=== PATIENT | male | born 1975 | race Caucasian/White ===

== ENCOUNTER 2016-06-13 21:50 | Emergency (ER) | payer OTHER ==
[~2016-06-13] VITALS: Ht 172.7 cm; Wt 79.5 kg
[2016-06-13 22:40] VITALS: Ht 172.7 cm; Wt 79.5 kg
[2016-06-14 00:29] VITALS: TEMP 98
[2016-06-14] MEDS ORDERED: SOD CHLORIDE 0.9% 1,000 ML IV STA (00:36)
[2016-06-14] MEDS ORDERED: LIDOCAINE/MYLANTA 40 ML BTL PO STA (00:36)
[2016-06-14] MEDS ORDERED: ONDANSETRON 4 MG INJ IV STA (00:36)
[2016-06-14] MEDS ORDERED: BELLADONNA/PHENOBARBITAL TAB PO STA (00:36)
[2016-06-14] MEDS ORDERED: HYDROmorphONE 1 MG/ML SYG IV STA (00:36)
[2016-06-14 02:21] LABS: BASOPHILS % 0.3 % (0.0-2.0); EOSINOPHILS % 0.6 % (0.0-7.0); HEMOGLOBIN 13.5 g/dl (14.0-18.0); LYMPHOCYTES # 2.5 10^3/ul (0.8-2.9); LYMPHOCYTES % 33.1 % (15.0-51.0); MEAN CORPUSCULAR HEMOGLOBIN 30.9 pg (29.0-33.0); MEAN CORPUSCULAR HGB CONC 33.7 g/dl (32.0-37.0); MEAN CORPUSCULAR VOLUME 91.7 fl (82.0-101.0); MEAN PLATELET VOLUME 9.2 fl (7.4-10.4); MONOCYTE # 0.5 10^3/ul (0.3-0.9); NEUTROPHIL # 4.5 10^3/ul (1.6-7.5); PLATELET COUNT 268 10^3/UL (140-440); RED BLOOD COUNT 4.37 10^6/ul (4.70-6.10); RED CELL DISTRIBUTION WIDTH 13.5 % (11.5-14.5); UNCORRECTED WBC 7.6 10^3/ul (4.8-10.8); WHITE BLOOD COUNT 7.6 10^3/ul (4.8-10.8)
[2016-06-14 02:24] LABS: CONDITION 1
[2016-06-14 02:37] LABS: ALBUMIN 4.8 g/dl (3.3-4.9); POTASSIUM 3.7 mmol/L (3.5-5.1)
[2016-06-14 02:40] LABS: ALBUMIN/GLOBULIN RATIO 1.26; BILIRUBIN,INDIRECT 0.1 mg/dl (0-1.1); BILIRUBIN,TOTAL 0.1 mg/dl (0.2-1.3); CREATININE 0.68 mg/dl (0.61-1.24); TOTAL PROTEIN 8.6 g/dl (6.1-8.1)
[2016-06-14 02:51] LABS: TROPONIN-I 0.015 ng/ml (0.00-0.12)
[2016-06-14] MEDS ORDERED: ONDA4TAB8 PO (03:25)
--- NOTE | 2016-06-14 03:29 | ERD ---
ER Documentation Chief Complaint Date/Time DATE: 06/14/16 TIME: 03:26 Chief Complaint active vomiting x2days hx of pancreatitis HPI 40-year-old man presents with epigastric abdominal pain and multiple episodes of clear nonbloody nonbilious emesis. He states he has this at least once per month and cannot eat for about 5 days because of the pain and vomiting. He has opioid analgesics and Zofran at home which he has not been able to use because of his symptoms. He has a history of alcoholism, gastritis, and recurrent pancreatitis with pancreatic pseudocysts and states he last drank a few months ago. Patient denies blood per rectum or melena, no fevers or chills, no chest pain or shortness of breath. Patient denies recent weight loss. ROS All systems reviewed and are negative except as per history of present illness. Medications Home Meds Active Scripts Ondansetron Hcl* (Zofran*) 4 Mg Tablet, 4 MG PO Q8H Y for NAUSEA AND/OR VOMITING , #15 TAB Prov:KRYSTAL ADAM MD 06/14/16 Allergies Allergies: Coded Allergies: Sulfa (Sulfonamide Antibiotics) (Unverified Allergy, Unknown, 06/14/16) PMhx/Soc Chronic pain syndrome, recurrent pancreatitis, previous pancreatic pseudocysts, recent history of alcoholism History of Surgery: Yes (ENDOSCOPY REMOVAL OF GASTRIC CYSTS/TUMOR X 7) Anesthesia Reaction: No Hx 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 Disorder: No Hx Respiratory Disorders: No Hx Cardiac Disorders: No Hx Psychiatric Problems: No Hx Miscellaneous Medical Probl: Yes (PANCREATITIS, PSEUDOCYSTS) Hx Alcohol Use: No Hx Substance Use: No Hx Tobacco Use: No Smoking Status: Never smoker FmHx Family History: No diabetes Physical Exam Vitals Vital Signs Date Time Temp Pulse Resp B/P Pulse Ox O2 Delivery O2 Flow Rate FiO2 06/14/16 00:29 98.0 98 20 139/107 99 Room Air 06/13/16 22:40 98.3 132 24 177/90 97 Physical Exam GENERAL: Well-developed, well-nourished, dehydrated HEENT: Dry mucous membranes, pink conjunctiva, no cervical spine tenderness or step-off deformities, no goiter, no jaundice or icterus, extraocular movements intact without pain. No submandibular induration, and no pharyngeal erythema NEURO: Alert and oriented 3, cranial nerves II through XII intact bilaterally, pupils equal round reactive to light, no focal deficits or facial asymmetry, sensation intact distally Strength 5/5 in upper and lower extremities bilaterally CARDIAC: Tachycardic and regular, no murmurs rubs or gallops LUNGS: Clear bilaterally no wheezing crackles or stridor ABDOMEN: Soft nontender, no guarding, no rigidity, no rebound, no psoas sign no obturator sign. Normoactive bowel sounds SKIN: Warm and dry to touch, no abrasions, contusions, or hematomas, no lacerations, no ecchymosis, no target lesions, and without ulcers EXTREMITIES: No clubbing cyanosis or edema, calves are bilaterally symmetrical, no Homans sign, no popliteal cord sign. Distal pulses equal and bilateral PSYCH: Normal affect without agitation or irritability Result Diagram: 06/14/161906/14/160 Results 24 hrs Laboratory Tests Test 06/14/16 00:20 Alanine Aminotransferase (ALT/SGPT) 49IU/L Albumin 4.8g/dl Albumin/Globulin Ratio 1.26 Alkaline Phosphatase 94IU/L Anion Gap 23 Aspartate Amino Transf (AST/SGOT) 46IU/L Basophils # 0.010^3/ul Basophils % 0.3% Blood Urea Nitrogen 7mg/dl Calcium Level 10.0mg/dl Carbon Dioxide Level 29mmol/L Chloride Level 97mmol/L Creatinine 0.68mg/dl Direct Bilirubin 0.00mg/dl Eosinophils # 0.010^3/ul Eosinophils % 0.6% Globulin 3.80g/dl Glucose Level 109mg/dl Hematocrit 40.0% Hemoglobin 13.5g/dl Indirect Bilirubin 0.1mg/dl Lipase 192U/L Lymphocytes # 2.510^3/ul Lymphocytes % 33.1% Mean Corpuscular Hemoglobin 30.9pg Mean Corpuscular Hemoglobin Concent 33.7g/dl Mean Corpuscular Volume 91.7fl Mean Platelet Volume 9.2fl Monocytes # 0.510^3/ul Monocytes % 7.0% Neutrophils # 4.510^3/ul Neutrophils % 59.0% Nucleated Red Blood Cells # 0.010^3/ul Nucleated Red Blood Cells % 0.0/100WBC Platelet Count 38894^3/UL Potassium Level 3.7mmol/L Red Blood Count 4.3710^6/ul Red Cell Distribution Width 13.5% Sodium Level 145mmol/L Total Bilirubin 0.1mg/dl Total Protein 8.6g/dl Troponin I 0.015ng/ml White Blood Count 7.610^3/ul Current Medications Medications (Trade) Dose Ordered Sig/Steve Route PRN Reason Start Time Stop Time Status Last Admin Dose Admin Sodium Chloride (NS) 1,000 ml @ 2,000 mls/hr Q30M STAT IV 06/14/16 00:36 06/14/16 01:05 DC 06/14/16 00:53 Hydromorphone HCl (Dilaudid) 2 mg ONCE STAT IV 06/14/16 00:36 06/14/16 00:38 DC 06/14/16 00:48 Ondansetron HCl (Zofran Inj) 4 mg ONCE STAT IV 06/14/16 00:36 06/14/16 00:38 DC 06/14/16 00:48 Miscellaneous Medication (Gi Cocktail (2)) 40 ml ONCE STAT PO 06/14/16 00:36 06/14/16 00:38 DC 06/14/16 00:47 Belladonna/ Phenobarbital () 2 tab ONCE STAT PO 06/14/16 00:36 06/14/16 00:39 DC 06/14/16 00:48 Procedures/MDM IV line was established patient was placed on baton teacher rhythm strip revealed a sinus tachycardia at 100 bpm with upright P and T waves. Patient was afebrile. I administered 1 L normal saline intravenously, hydromorphone 2 mg IV, and Zofran 4 mg IV with excellent effect. Patient also received a GI cocktail 50 cc p.o. which she tolerated without difficulty, patient had no episodes of vomiting while here. EKG performed, read by me: 97 bpm, normal sinus rhythm, normal axis, no acute ST segment changes, narrow QRS complex, with good R-wave progression in precordial leads. CBC was unremarkable, electrolytes are normal, liver function tests were normal , lipase was normal, troponin was normal. Abdominal examination was repeated by me after medications were administered and prior to discharge, it remains benign, there is no tenderness, rebound, or rigidity. Patient it seems is seeking admission although I have no criteria or indication to admit the patient at this time, his pain has been controlled, vital signs are normal, and workup here was unremarkable. I informed him that his symptoms can be managed as an outpatient with Zofran and continued medication use as prescribed by his PMD. Differential diagnoses considered, included but not limited to acute coronary syndrome, pulmonary embolism, aortic dissection, abdominal aortic aneurysm, sepsis, stroke, meningitis, encephalitis, pneumonia, appendicitis, cholecystitis , bowel obstruction, pyelonephritis, nephrolithiasis, cystitis, as well as metabolic, hematologic, and electrolyte abnormalities. As well as abscess, cellulitis, fractures, and dislocations. Patient feels much better at this time, and vital signs are normal, symptoms have improved. I did give strict instructions to return to the ED if symptoms continue or worsen, patient will otherwise follow-up with primary care physician. Patient understood instructions and agreed to plan. Departure Diagnosis: Primary Impression: Chronic pain Chronic pain type: chronic pain syndrome Qualified Code: G89.4 - Chronic pain syndrome Additional Impressions: Dehydration Nausea and vomiting Vomiting type: unspecified Vomiting Intractability: non-intractable Qualified Code: R11.2 - Non-intractable vomiting with nausea, unspecified vomiting type Condition: Good Patient Instructions: Dehydration, Chronic Pain KRYSTAL ADAM MD Jun 14, 2016 03:29
[2016-06-14 04:07] VITALS: BP 133/92; PULSE 94; RESP 17
== END 2016-06-14 04:09 | disposition home or self-care (01) ==
LOC: E/R 21:50
DX: G89.4 Chronic pain syndrome (principal); R11.2 Nausea with vomiting, unspecified; E86.0 Dehydration
CPT/HCPCS: 36415; 80053; 83690; 84484; 85025; 93005; 96374; 96375; J1170; J2405; J7030; Z7502; Z7610

== ENCOUNTER 2016-06-25 04:01 | Inpatient (IN) | payer OTHER ==
[~2016-06-25] VITALS: Ht 172.7 cm; Wt 82.4 kg
[~2016-06-25 04:01] MED LIST: ONDA4TAB8 PO
[2016-06-25 04:46] VITALS: Ht 172.7 cm; Wt 82.4 kg
[2016-06-25] MEDS ORDERED: DOCUSATE SODIUM 100 MG CAP PO PRN (06:00)
[2016-06-25] MEDS ORDERED: MAGNESIUM HYDROXIDE 30ML CUP PO PRN (06:00)
[2016-06-25] MEDS ORDERED: morphine 2 MG INJ IV PRN (06:00)
[2016-06-25] MEDS ORDERED: NACL 0.9% 3 ML SYG IV SCH (06:00)
[2016-06-25] MEDS ORDERED: ACETAMINOPHEN 325 MG TAB PO PRN (06:00)
[2016-06-25] MEDS: DEXTROSE 5%-0.45% NACL 1,000 ML IV SCH ×2 (06:25→16:09)
[2016-06-25] MEDS: ONDANSETRON 4 MG INJ IV PRN (06:26)
[2016-06-25] MEDS: HYDROmorphONE 1 MG/ML SYG IV PRN ×6 (06:26→22:37)
[2016-06-25] MEDS ORDERED: LORA10TA3 PO (06:44)
[2016-06-25] MEDS ORDERED: OMEP20CA16 PO (06:47)
[2016-06-25] MEDS ORDERED: LIPA1CAP2 PO (06:49)
[2016-06-25] MEDS ORDERED: LIPASE PROTEASE AMYLASE PO SCH (07:30)
[2016-06-25 07:47] VITALS: BP 115/65; RESP 17
[2016-06-25] MEDS: LORATADINE 10 MG TAB PO SCH (09:49)
--- NOTE | 2016-06-25 11:15 | HP ---
DATE OF ADMISSION: 06/25/2016 TIME: 6:30 a.m. CHIEF COMPLAINT: Abdominal pain. HISTORY OF PRESENT ILLNESS: The patient is a 40-year-old male with a history of idiopathic pancreat itis. The patient was seeing a security project manager in the past and was told likely that etiologies c ould be from sludge versus ampullar stenosis. The patient states that he was diagnosed with pancrea titis in March of 2013 and the frequency of recurrences has been increasing. He states that the onset of the pain also occurs quicker than before. Patient has had a workup done at an outside [facility] and had been diagnosed with this idiopathic pancreatitis. He does not abuse alcohol. The vic ent states that his pain, once again, began yesterday morning. It is associated with nausea and vom iting. He went to an outside hospital at [facility] [place], where he was noted to have pancreatitis once a gain and he was transferred to [facility] for insurance purposes. PAST MEDICAL HISTORY: Idiopathic pancreatitis. PAST SURGICAL HISTORY: Denies. U HOME MEDICATIONS: 1. Claritin. 2. Zofran. 3. Creon. 4. Omeprazole. ALLERGIES: SULFA. FAMILY HISTORY: Denies. SOCIAL HISTORY: Denies any alcohol, tobacco, or drug abuse. REVIEW OF SYSTEMS: A 12-point review of systems is negative except that in the HPI. PHYSICAL EXAMINATION: VITAL SIGNS: Stable. NEUROLOGIC: Alert and oriented. HEENT: Normocephalic, atraumatic. LUNGS: Clear to auscultation. CARDIOVASCULAR: Regular rate and rhythm. ABDOMEN: Nondistended, soft. Tender to palpation in the mid epigastrium. EXTREMITIES: No clubbing, cyanosis, or edema. LABORATORIES: White count 6.8, hemoglobin 13.7, platelets are 219. Chemistry within normal limits except for BUN slightly low at 6. LFTs are within normal limits. Lipase is 33. ASSESSMENT AND PLAN: 1. Chronic pancreatitis. The patient was diagnosed with idiopathic pancreatitis in March 3. It appears that his symptoms are progressively getting worse. It was suggested to get a cholecys tectomy in the past as one of the etiologies may be biliary sludge. He was also told about possible ampullary stenosis. The patient is interested in having a surgical evaluation for a laparoscopic ch olecystectomy, as he states that his pain is becoming more of an issue. He understands that the prob ability of resolution of the symptoms is not 100%, but he is still interested in proceeding. Will ob tain a GI and surgery consultation. Will put the patient on a clear liquid diet once his pain impro ves. Will treat his pain with Dilaudid as needed. 2. Dermatitis. The patient does have what appears to be a dermatitis rash on his hands. A scabies screen will be done. 3. Prophylaxis. SCDs. Dictated By: KRISTOFER SANFORD MD BS/NTS Conf#: [id number] DID#: [id number]
--- NOTE | 2016-06-25 14:43 | CONS ---
Date/Time of Note Date/Time of Note DATE: 06/25/16 TIME: 14:35 Assessment/Plan Assessment/Plan Additional Assessment/Plan Assessment: * Chronic relapsing pancreatitis * Rule out pseudocyst * Rule out treatable anatomic abnormality such as stricture * Chronic pain opiate dependent/ * Obesity Plan: * Continue n.p.o., IV fluids and pain management * Once pain subsides may reintroduce diet * Obtain MRI MRCP to assess biliary and pancreatic ductal anatomy Consultation Date/Type/Reason Admit Date/Time Jun 25, 2016 at 04:01 Date of Consultation: Jun 25, 2016 Reason for Consultation Pancreatitis Hx of Present Illness 40-year-old male with significant history of recurrent episodes of pancreatitis , the patient states she has been hospitalized more than 10 times in the last 2 years. First episode of pancreatitis occurred in 2012, subsequently developed a pseudocyst that was apparently drained percutaneously at [facility]. The patient states he has never been told the etiology of previous episodes of pancreatitis. He states that he used to drink socially but never on a regular basis, he does not drink alcohol at the present time. He has never been told to have dyslipidemia or biliary pathology although sludge has been mentioned as a potential trigger or cause of his episodes of pancreatitis. The patient states he recently was changed insurance plans and has only seen his PCP wants and is awaiting referral for specialty care. The patient presented to the emergency room complaining of severe epigastric pain radiating towards the back, there is associated nausea and vomiting, there is no overt gastrointestinal bleeding i.e. hematemesis, melena or hematochezia, there is no fever, chills or diaphoresis. The patient states that he is in pain continuously and uses Percocet approximately 50-60% of the time to control severe pain. When I asked the patient states that at some point in time he saw a pain specialist while being hospitalized but he was never able to follow-up as an outpatient due to insurance reasons. He has been prescribed Creon and also has been evaluated multiple times with endoscopy, at some point he was diagnosed H pylori infection and was treated with antibiotics but this did not altered the course of his chronic pain. He cannot recall ever having an MRCP or ERCP. Constitutional: improved, no complaints Eyes: no complaints ENT: no complaints Respiratory: no complaints Cardiovascular: no complaints Gastrointestinal: nausea, pain (Chronic epigastric abdominal pain) Genitourinary: no complaints Musculoskeletal: no complaints Skin: no complaints Neurologic: no complaints Endocrine: no complaints Lymphatic: no complaints Psychological: nl mood/affect, no complaints Immunologic: no complaints Past Medical History Medical History: other (Pancreatitis) Past Surgical History Past Surgical Hx: no surgical history Family History Significant Family History: no pertinent family hx Social History Alcohol Use: sober Smoking Status: Never smoker Drug Use: none Exam/Review of Systems Vital Signs Vitals Vital Signs Date Time Temp Pulse Resp B/P Pulse Ox O2 Delivery O2 Flow Rate FiO2 06/25/16 07:47 98.1 81 17 115/65 96 Intake and Output 06/24/16 06/24/16 06/25/16 15:00 23:00 07:00 Intake Total 0 ml Balance 0 ml Exam Constitutional: alert, oriented, well developed (Obese) Psych: anxiety Head: atraumatic, normocephalic Eyes: EOMI, PERRL, nl conjunctiva, nl lids, nl sclera ENMT: nl external ears & nose, nl lips & teeth, nl nasal mucosa & septum Neck: non-tender, supple Respiratory: clear to auscultation, normal air movement Cardiovascular: nl pulses, regular rate and rhythm Gastrointestinal: bowel sounds, distended, nl liver, spleen, non-tender, soft, tender (Moderately tender epigastric area), No ascites, No hepatomegaly, No mass, No rebound or guarding, No splenomegaly Musculoskeletal: nl extremities to inspection Extremities: normal pulses Skin: nl turgor, other (Multiple tattoos), No rash or lesions Lymph: nl lymph nodes Medications Medications Current Medications Dextrose/Sodium Chloride (D5-1/2ns) 1,000 ml @ 100 mls/hr Q10H IV Last administered on 06/25/16 06:25; Admin Dose 100 MLS/HR; Start 06/25/16 at 05:51 Ondansetron HCl (Zofran Inj) 4 mg Q6H PRN IV NAUSEA AND/OR VOMITING Last administered on 06/25/16 06:26; Admin Dose 4 MG; Start 06/25/16 at 06:00 Acetaminophen (Tylenol Tab) 650 mg Q6H PRN PO PAIN LEVEL 1-3 OR FEVER; Start at 06:00 Acetaminophen/ Hydrocodone Bitart ([place] (5/325)) 1 tab Q6H PRN PO MODERATE PAIN LEVEL 4-6; Start 06/25/16 at 06:00 Docusate Sodium (Colace) 100 mg Q12H PRN PO CONSTIPATION; Start 06/25/16 at 06: 00 Magnesium Hydroxide (Milk Of Mag) 30 ml DAILY PRN PO CONSTIPATION; Start at 06:00 Influenza Virus Vaccine (Fluzone) 0.5 ml ONCE ONCE IM* ; Start 06/27/16 at 09:00 ; Stop 06/27/16 at 09:01 Hydromorphone HCl (Dilaudid) 1 mg Q3H PRN IV PAIN Last administered on 13:02; Admin Dose 1 MG; Start 06/25/16 at 06:30 Loratadine (Claritin) 10 mg DAILY PO Last administered on 06/25/16 09:49; Admin Dose 10 MG; Start 06/25/16 at 09:00 Pantoprazole (Protonix Iv) 40 mg DAILY@06 IV ; Start 06/26/16 at 06:00 AUSTYN CHAVEZ MD Jun 25, 2016 14:42
[2016-06-25 20:58] VITALS: BP 110/59; RESP 19
[2016-06-26] MEDS: DEXTROSE 5%-0.45% NACL 1,000 ML IV SCH ×3 (01:35→20:22)
[2016-06-26] MEDS: HYDROmorphONE 1 MG/ML SYG IV PRN ×8 (01:35→23:22)
[2016-06-26] MEDS: PANTOPRAZOLE 40 MG INJ IV SCH (05:35)
[2016-06-26] MEDS: HYDROCODONE/APAP (5/325) TAB PO PRN ×3 (06:32→19:46)
[2016-06-26 06:41] LABS: BASOPHILS % 0.4 % (0.0-2.0); EOSINOPHILS # 0.1 10^3/ul (0.0-0.5); EOSINOPHILS % 1.5 % (0.0-7.0); HEMATOCRIT 34.6 % (42.0-52.0); LYMPHOCYTES # 1.8 10^3/ul (0.8-2.9); LYMPHOCYTES % 30.8 % (15.0-51.0); MEAN CORPUSCULAR HEMOGLOBIN 31.6 pg (29.0-33.0); MEAN CORPUSCULAR HGB CONC 34.6 g/dl (32.0-37.0); MEAN CORPUSCULAR VOLUME 91.3 fl (82.0-101.0); MEAN PLATELET VOLUME 8.7 fl (7.4-10.4); MONOCYTE # 0.4 10^3/ul (0.3-0.9); MONOCYTES % 6.8 % (0.0-11.0); NEUTROPHIL # 3.6 10^3/ul (1.6-7.5); NEUTROPHILS % 60.5 % (39.0-77.0); PLATELET COUNT 167 10^3/UL (140-440); RED BLOOD COUNT 3.79 10^6/ul (4.70-6.10); RED CELL DISTRIBUTION WIDTH 13.8 % (11.5-14.5); UNCORRECTED WBC 5.9 10^3/ul (4.8-10.8); WHITE BLOOD COUNT 5.9 10^3/ul (4.8-10.8)
[2016-06-26 06:45] LABS: CONDITION 1
[2016-06-26 06:51] LABS: ALBUMIN 3.7 g/dl (3.3-4.9); POTASSIUM 3.8 mmol/L (3.5-5.1)
[2016-06-26 06:53] LABS: BILIRUBIN,INDIRECT 0.3 mg/dl (0-1.1); BILIRUBIN,TOTAL 0.3 mg/dl (0.2-1.3); CREATININE 0.59 mg/dl (0.61-1.24)
[2016-06-26 06:54] LABS: ALBUMIN/GLOBULIN RATIO 1.32; CALCIUM 8.9 mg/dl (8.4-10.2); PHOSPHORUS 3.8 mg/dl (2.5-4.9); TOTAL PROTEIN 6.5 g/dl (6.1-8.1)
[2016-06-26 06:55] LABS: MAGNESIUM 1.4 mg/dl (1.7-2.5)
[2016-06-26] MEDS: LORATADINE 10 MG TAB PO SCH (08:00)
--- NOTE | 2016-06-26 08:09 | RADRPT ---
AMENDMENT: 06/26/2016 11:55:43 AM Elias Doran M.D Correction to the impression: There is NO cholelithiasis, cholecystitis, or choledocholithiasis. PROCEDURE: MRI abdomen without contrast; MRCP CLINICAL INDICATION: Possible pancreatitis TECHNIQUE: Multiplanar, multisequence imaging of the abdomen was obtained without contrast. Imagi ng includes axial T2, T2 fat sat, in and out of phase gradient images, noncontrast T1 fat-saturated images. In addition, a dedicated high T2 signal intensity MRCP images were obtained in multiple planes with 3-D reconstructions. COMPARISON: none FINDINGS: The gallbladder is unremarkable without dilatation, wall thickening or visible stones. No filling d efects are seen within the biliary ductal system with no evidence of biliary ductal dilatation. The pancreatic duct is not dilated. There is uniform signal intensity of the liver without evidence of mass. There is a flow void seen within the portal vein without gross evidence for portal vein thrombus. The kidneys are symmetric without hydronephrosis or mass. There is a simple appearing right-sided r enal cyst. The adrenal glands are within normal limits. The pancreas is uniform without surroundin g inflammation. There is no evidence of bowel obstruction or inflammatory changes of the mesentery. The aorta is un remarkable. There are no enlarged lymph nodes. There is no acute osseous abnormality. IMPRESSION: There is cholelithiasis, cholecystitis, or choledocholithiasis. No acute process in the abdomen. There are no visible inflammatory changes around the pancreas. Thi s can be correlated with amylase and lipase levels. RPTAT: AA .Elias Doran MD, MD Date Time Electronically viewed and signed by .Elias Doran MD, MD on 06/26/2016 11:55 .Mariana/
[2016-06-26 08:19] VITALS: BP 141/77; RESP 20
--- NOTE | 2016-06-26 08:59 | CONS ---
DATE OF ADMISSION: 06/25/2016 DATE OF CONSULTATION: 06/25/2016 TYPE OF CONSULTATION: Surgical. REFERRING PHYSICIAN: Dr. Karen Lynne. CHIEF COMPLAINT: 1. Abdominal pain. 2. Recurrent pancreatitis. 3. Questionable alcohol and drug abuse in the past. HISTORY OF PRESENT ILLNESS: Mr. Lio Garcia is a 40-year-old male who apparently has had recurre nt pancreatitis since 03/2013 with resolved pseudocyst wherein etiology has not been identified. Hi s previous ultrasounds have not seen gallstones but some have suggested sludge. The patient denies any significant alcohol use. Denies any drug use. Denies any insect or spider bites. He states th e pain is persistent throughout the abdomen, sharp and crampy in nature without radiation. No fever s or chills. No chest pain or shortness of breath. No visual or neurologic changes. No dysuria. No changes in bowel habits. No trauma or sick contacts. Review of his reports from other hospitals, specifically [facility], identifies that he has a history of al cohol abuse and opiate addiction and was advised by the physicians there to go into methadone therap y. However, he would not follow up and would request narcotics for pain control. When I asked him about this history, the patient reports not having narcotics abuse history and that was suggested by the physician to prevent possible future addiction issues. Most recently he was seen at an outside hospital and transferred here for pain control due to insura mie capitation. Surgical consult is obtained for further evaluation and treatment. PAST MEDICAL HISTORY: 1. Chronic recurrent pancreatitis. 2. History of a pseudocyst. 3. Gout history. 4. Questionable alcohol abuse history. 5. Questionable opiate addiction. 6. Anxiety. 7. Depression history. 8. Hypertension history. 9. Hyperlipidemia. 10. Dermatitis, questionable scabies. 11. BMI 28. 12. Fatty liver. 13. Possible hemangioma. 14. DVT history. 15. Ankle bone spur. PAST SURGICAL HISTORY: Endoscopic ultrasound with FNA 04/2014. MEDICATIONS: As per MAR. ALLERGIES: SULFA. SOCIAL HISTORY: As per HPI. FAMILY HISTORY: Noncontributory. REVIEW OF SYSTEMS: A 12-point systems negative unless addressed in HPI ASSESSMENT AND PLAN: Mr. Lio Garcia is a 40-year-old male with multiple comorbidities. 1. Abdominal pain with history of chronic recurrent pancreatitis; however, most recent imaging repo rts are reviewed and laboratory reviewed. There is no evidence of pancreatitis on either. The vic ent does have a questionable history of drug and alcohol abuse. I highly recommend further investig ation with imaging at our facility and a tox screen. There is no evidence of gallstones thus far th at require cholecystectomy. Continue GI workup for further evaluation and treatment. Consider eric ting his pain instead of narcotics with IV Tylenol, and Toradol and Ultram. 2. Dermatitis, questionable scabies, being ruled out. 3. Fatty liver history. Encourage nutrition optimization. Encourage complete cessation of alcohol use. 4. Anemia without evidence of acute blood loss. Continue close observation. 5. Gout history. Continue medical management. 6. Hyperlipidemia history. Continue medical management and nutrition optimization. Thank you very much for consulting me in this patient's care. Dictated By: MARI DARLING/NTS Conf#: [id number] DID#: [id number] CC: KAREN LYNNE MD;*EndCC*
--- NOTE | 2016-06-26 10:50 | PN ---
DATE: 06/26/2016 INTERNAL MEDICINE FOLLOWUP SUBJECTIVE: Chart reviewed. Surgical and GI consultation noted. The patient continues to complain of mid epigastric abdominal pain radiating to the back area. OBJECTIVE: VITAL SIGNS: Blood pressure 141/77, pulse 103, respirations 20, temperature 97.8, saturating 97%. HEENT: Pupils are equal and react to light. Anicteric sclerae. NECK: Supple, no JVD noted, no cervical adenopathy, noted no carotid bruits heard. LUNGS: Fair breath sounds bilaterally. CARDIOVASCULAR: S1, S2 normal. ABDOMEN: Soft and mildly tender in the epigastric area. No rebound present. No rigidity present. EXTREMITIES: No clubbing, cyanosis, or edema noted. NEUROLOGICAL: Awake, alert. No focal deficits. LABORATORY DATA: Sodium 143, potassium 3.8, chloride 104, CO2 of 25, BUN 4, creatinine 0.59, glucos e 120. LFTs are normal. WBC 5.9, hemoglobin 12, hematocrit 34.6, and glucose 167. MRI done yester day showed no evidence of gallstones or stone in the biliary ductal system or dilatation. The pancr eatic duct is also not dilated. No acute process in the abdomen was noted. IMPRESSION: 1. Abdominal pain. 2. History of recurrent pancreatitis. 3. Questionable alcohol and drug abuse in the past. RECOMMENDATIONS: 1. Follow up labs, amylase and lipase in the morning. 2. We will discuss with GI and surgery regarding the validity of diagnosis of pancreatitis versus p ain seeking behavior. Dictated By: MAGDALENA ALARCON MD, MA/SARAH BETH Conf#: [id number] DID#: [id number]
--- NOTE | 2016-06-26 11:30 | PN ---
Date/Time of Note Date/Time of Note DATE: 06/26/16 TIME: 11:26 Assessment/Plan VTE Prophylaxis VTE Prophylaxis Intervention: SCD's Lines/Catheters IV Catheter Type (from Nrs): Peripheral IV Urinary Cath still in place: No Assessment/Plan Assessment/Plan Assessment: * Chronic relapsing pancreatitis * No evidence of active pancreatitis or pseudocyst * Rule out treatable anatomic abnormality such as stricture * No evidence of biliary pathology * Chronic pain opiate dependent/ * Obesity * Gout Plan: * Reintroduce diet * Switch to p.o. meds * Outpatient pain management * Safe for outpatient management of tolerating diet and pain controlled Subjective 24 Hr Interval Summary Free Text/Dictation Course reviewed with nursing staff MRCP negative for biliary pathology, pancreatic abnormalities including dilatation of the pancreatic duct or pseudocyst Patient continues to have significant pain which is clearly a chronic problem He is requesting medication every 3 hours "on the dot" which raises questions about drug-seeking behavior He also complains of gout symptoms this has been referred to PCP Will advance diet as tolerated Recommend switching to p.o. meds Patient will benefit from pain management as an outpatient Exam/Review of Systems Vital Signs Vitals Vital Signs Date Time Temp Pulse Resp B/P Pulse Ox O2 Delivery O2 Flow Rate FiO2 06/26/16 08:19 98.8 103 20 141/77 97 Intake and Output 06/25/16 06/25/16 06/26/16 15:00 23:00 07:00 Intake Total 1000 ml 1400 ml Balance 1000 ml 1400 ml Exam Constitutional: alert, obese, oriented, well developed Psych: nl mood/affect, no complaints Head: atraumatic, normocephalic Eyes: EOMI, PERRL, nl conjunctiva, nl lids, nl sclera ENMT: nl external ears & nose, nl lips & teeth, nl nasal mucosa & septum Neck: non-tender, supple Respiratory: clear to auscultation, normal air movement Cardiovascular: nl pulses, regular rate and rhythm Gastrointestinal: nl liver, spleen, soft, tender (Epigastrium) Musculoskeletal: nl extremities to inspection, nl gait and stance Extremities: normal pulses Skin: nl turgor, No rash or lesions Lymph: nl lymph nodes Results Result Diagram: 06/26/16 0555 06/26/16 0555 Results 24 hrs Laboratory Tests Test 06/26/16 05:55 Alanine Aminotransferase (ALT/SGPT) 32 Albumin 3.7 Albumin/Globulin Ratio 1.32 Alkaline Phosphatase 88 Anion Gap 18 H Aspartate Amino Transf (AST/SGOT) 28 Basophils # 0.0 Basophils % 0.4 Blood Urea Nitrogen 4 L Calcium Level 8.9 Carbon Dioxide Level 25 Chloride Level 104 Creatinine 0.59 L Direct Bilirubin 0.00 Eosinophils # 0.1 Eosinophils % 1.5 Globulin 2.80 Glucose Level 120 Hematocrit 34.6 L Hemoglobin 12.0 L Indirect Bilirubin 0.3 Lymphocytes # 1.8 Lymphocytes % 30.8 Magnesium Level 1.4 L Mean Corpuscular Hemoglobin 31.6 Mean Corpuscular Hemoglobin Concent 34.6 Mean Corpuscular Volume 91.3 Mean Platelet Volume 8.7 Monocytes # 0.4 Monocytes % 6.8 Neutrophils # 3.6 Neutrophils % 60.5 Nucleated Red Blood Cells # 0.0 Nucleated Red Blood Cells % 0.0 Phosphorus Level 3.8 Platelet Count 167 # Potassium Level 3.8 Red Blood Count 3.79 L Red Cell Distribution Width 13.8 Sodium Level 143 Total Bilirubin 0.3 Total Protein 6.5 White Blood Count 5.9 # Medications Medications Current Medications Dextrose/Sodium Chloride (D5-1/2ns) 1,000 ml @ 100 mls/hr Q10H IV Last administered on 06/26/16 01:35; Admin Dose 100 MLS/HR; Start 06/25/16 at 05:51 Ondansetron HCl (Zofran Inj) 4 mg Q6H PRN IV NAUSEA AND/OR VOMITING Last administered on 06/25/16 06:26; Admin Dose 4 MG; Start 06/25/16 at 06:00 Acetaminophen (Tylenol Tab) 650 mg Q6H PRN PO PAIN LEVEL 1-3 OR FEVER; Start at 06:00 Acetaminophen/ Hydrocodone Bitart ([place] (5/325)) 1 tab Q6H PRN PO MODERATE PAIN LEVEL 4-6 Last administered on 06/26/16 06:32; Admin Dose 1 TAB; Start 03/31 at 06:00 Docusate Sodium (Colace) 100 mg Q12H PRN PO CONSTIPATION; Start 06/25/16 at 06: 00 Magnesium Hydroxide (Milk Of Mag) 30 ml DAILY PRN PO CONSTIPATION; Start at 06:00 Influenza Virus Vaccine (Fluzone) 0.5 ml ONCE ONCE IM* ; Start 06/27/16 at 09:00 ; Stop 06/27/16 at 09:01 Hydromorphone HCl (Dilaudid) 1 mg Q3H PRN IV PAIN Last administered on 10:57; Admin Dose 1 MG; Start 06/25/16 at 06:30 Loratadine (Claritin) 10 mg DAILY PO Last administered on 06/26/16 08:00; Admin Dose 10 MG; Start 06/25/16 at 09:00 Pantoprazole (Protonix Iv) 40 mg DAILY@06 IV Last administered on 06/26/16 05: 35; Admin Dose 40 MG; Start 06/26/16 at 06:00 AUSTYN CHAVEZ MD Jun 26, 2016 11:30
[2016-06-26] MEDS: PANCRELIPASE PO SCH ×2 (12:30→17:08)
[2016-06-26] MEDS ORDERED: HYDROmorphONE 1 MG/ML SYG IV STA (18:29)
[2016-06-26 20:00] VITALS: BP 159/88; PULSE 89; RESP 18
[2016-06-26] MEDS ORDERED: COLCHICINE 0.6 MG TAB PO STA (22:04)
[2016-06-26] MEDS ORDERED: MAGNESIUM SULFATE 2 GM/50 ML 50 ML IVPB ONE (22:30)
[2016-06-26] MEDS ORDERED: METHYLPREDNISOLONE 125 MG INJ IV ONE (22:30)
[2016-06-27] MEDS: HYDROmorphONE 1 MG/ML SYG IV PRN ×7 (02:22→23:16)
[2016-06-27] MEDS: HYDROCODONE/APAP (5/325) TAB PO PRN ×4 (03:12→21:46)
--- NOTE | 2016-06-27 04:07 | PN ---
Date/Time of Note Date/Time of Note DATE: 06/26/16 TIME: 14:04 Assessment/Plan Lines/Catheters IV Catheter Type (from Nrs): Peripheral IV Che[place] in Place (from Nrs): No Assessment/Plan Chief Complaint/Hosp Course 1. Abdominal pain with history of chronic recurrent pancreatitis; however, most recent imaging reports are reviewed and laboratory reviewed. There is no evidence of pancreatitis on either. The patient does have a questionable history of drug and alcohol abuse. I highly recommend further investigation with imaging at our facility and a tox screen. There is no evidence of gallstones thus far that require cholecystectomy. Continue GI workup for further evaluation and treatment. Consider treating his pain instead of narcotics with IV Tylenol, and Toradol and Ultram. 2. Dermatitis, questionable scabies, being ruled out. 3. Fatty liver history. Encourage nutrition optimization. Encourage complete cessation of alcohol use. 4. Anemia without evidence of acute blood loss. Continue close observation. 5. Gout history. Continue medical management. 6. Hyperlipidemia history. Continue medical management and nutrition optimization. Thank you Late entry 06/26 Problems: Subjective 24 Hr Interval Summary Pain. No f/c. No n/v. No cp/sob. No cough. No petty/dizzy/visual or neuro changes. No dysuria. Min bloating. Bowel function. Exam/Review of Systems Vital Signs Vitals Vital Signs Date Time Temp Pulse Resp B/P Pulse Ox O2 Delivery O2 Flow Rate FiO2 06/26/16 20:00 98.1 89 18 159/88 97 Room Air Intake and Output 06/26/16 06/26/16 06/27/16 15:00 23:00 07:00 Intake Total 550 ml 1220 ml 50 ml Output Total 1200 ml Balance 550 ml 20 ml 50 ml Exam Constitutional: alert, obese, oriented, No distress Psych: nl mood/affect, No anxiety Head: atraumatic, normocephalic Eyes: EOMI, PERRL, nl conjunctiva, nl sclera, No icteric ENMT: mucosa pink and moist, nl external ears & nose, nl lips & teeth Neck: non-tender, supple, No jvd Respiratory: normal air movement, No congested cough, No labored breathing Cardiovascular: regular rate and rhythm, No edema Gastrointestinal: soft, tender (min), No firm, No rebound or guarding Genitourinary - Male: nl penis, nl scrotum Musculoskeletal: nl extremities to inspection, nl gait and stance, No joint tenderness Extremities: normal pulses, No calf tenderness, No edema 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: nl mental status, nl speech, No confused, No lethargic Skin: nl turgor, No diaphoresis, No ecchymosis, No rash or lesions Lymph: nl lymph nodes Results Result Diagram: 06/26/16 0555 06/26/16 0555 MARI BOONE MD Jun 27, 2016 04:07
[2016-06-27 05:16] LABS: BASOPHILS % 0.1 % (0.0-2.0); HEMATOCRIT 37.6 % (42.0-52.0); HEMOGLOBIN 13.3 g/dl (14.0-18.0); LYMPHOCYTES # 0.7 10^3/ul (0.8-2.9); LYMPHOCYTES % 7.8 % (15.0-51.0); MEAN CORPUSCULAR HEMOGLOBIN 31.7 pg (29.0-33.0); MEAN CORPUSCULAR HGB CONC 35.3 g/dl (32.0-37.0); MEAN CORPUSCULAR VOLUME 89.6 fl (82.0-101.0); MEAN PLATELET VOLUME 8.8 fl (7.4-10.4); MONOCYTES % 0.5 % (0.0-11.0); NEUTROPHIL # 7.8 10^3/ul (1.6-7.5); NEUTROPHILS % 91.6 % (39.0-77.0); PLATELET COUNT 200 10^3/UL (140-440); RED CELL DISTRIBUTION WIDTH 13.4 % (11.5-14.5); UNCORRECTED WBC 8.5 10^3/ul (4.8-10.8); WHITE BLOOD COUNT 8.5 10^3/ul (4.8-10.8)
[2016-06-27] MEDS: PANTOPRAZOLE 40 MG INJ IV SCH (05:30)
[2016-06-27 05:37] LABS: ALBUMIN 4.2 g/dl (3.3-4.9)
[2016-06-27 05:38] LABS: POTASSIUM 4.2 mmol/L (3.5-5.1)
[2016-06-27 05:40] LABS: ALBUMIN/GLOBULIN RATIO 1.27; BILIRUBIN,INDIRECT 0.3 mg/dl (0-1.1); BILIRUBIN,TOTAL 0.3 mg/dl (0.2-1.3); CREATININE 0.64 mg/dl (0.61-1.24); TOTAL PROTEIN 7.5 g/dl (6.1-8.1)
[2016-06-27 05:41] LABS: CALCIUM 9.7 mg/dl (8.4-10.2)
[2016-06-27 06:08] LABS: CONDITION 1; LH ANALYZER COMMENTS 1
[2016-06-27] MEDS: LORATADINE 10 MG TAB PO SCH (08:06)
[2016-06-27 08:38] VITALS: BP 137/83; RESP 18
[2016-06-27] MEDS: PANCRELIPASE PO SCH ×3 (08:47→17:11)
[2016-06-27] MEDS: DEXTROSE 5%-0.45% NACL 1,000 ML IV SCH ×2 (08:47→17:10)
[2016-06-27] MEDS ORDERED: INFLUENZA VIRUS VACCINE 0.5 ML (DISPENSING) IM* ONE (09:00)
[2016-06-27] MEDS ORDERED: IBUPROFEN 800 MG TAB PO PRN (17:30)
--- NOTE | 2016-06-27 17:57 | PN ---
Date/Time of Note Date/Time of Note DATE: 06/27/16 TIME: 17:51 Assessment/Plan VTE Prophylaxis VTE Prophylaxis Intervention: LMWH Lines/Catheters IV C[facility] Type (from [facility]): Peripheral IV Urinary Cath still in place: No Assessment/Plan Chief Complaint/Hosp Course S: Mod pain- Epigastric, lt flank. Aggravated w eating. States he had nausea and vomiting. Documented? No fevers chills. Ongoing gout? O: Vss PE No pallor icterus adenopathy Regular CTAB Bs + mod tenderness, nd. No rigidity/rebound. Probable voluntary guarding. No flank ecchymosis. No cvat Ext: No edema Assessment and plan 1. Abdominal pain/vomiting. No evidence of pancreatitis or pyelonephritis. Gastritis vs chronic pain? Stable, supportive care. 2. Chronic pain disorder? Counseling, outpatient pain management 3. Past alcoholism? 4. Acute on chronic gout 5. Possible ho colitis/diverticulitis/pseudocyst 6. Chr pancreatitis? etoh related? Asked pt to obtain old records from [facility]. Problems: Exam/Review of Systems Vital Signs Vitals Vital Signs Date Time Temp Pulse Resp B/P Pulse Ox O2 Delivery O2 Flow Rate FiO2 06/27/16 08:38 98.0 79 18 137/83 96 06/26/16 20:00 Room Air Intake and Output 06/26/16 06/26/16 06/27/16 15:00 23:00 07:00 Intake Total 550 ml 1220 ml 1350 ml Output Total 1200 ml 2500 ml Balance 550 ml 20 ml -1150 ml Results Result Diagram: 06/27/16 0436 06/27/16 0436 Results 24 hrs Laboratory Tests Test 06/27/16 04:36 Alanine Aminotransferase (ALT/SGPT) 23 Albumin 4.2 Albumin/Globulin Ratio 1.27 Alkaline Phosphatase 95 Amylase Level 41 Anion Gap 17 H Aspartate Amino Transf (AST/SGOT) 18 Basophils # 0.0 Basophils % 0.1 Blood Urea Nitrogen 5 L Calcium Level 9.7 Carbon Dioxide Level 28 Chloride Level 101 Creatinine 0.64 Direct Bilirubin 0.00 Eosinophils # 0.0 Eosinophils % 0.0 Globulin 3.30 H Glucose Level 229 #H Hematocrit 37.6 L Hemoglobin 13.3 L Indirect Bilirubin 0.3 Lipase 24 Lymphocytes # 0.7 L Lymphocytes % 7.8 L Mean Corpuscular Hemoglobin 31.7 Mean Corpuscular Hemoglobin Concent 35.3 Mean Corpuscular Volume 89.6 Mean Platelet Volume 8.8 Monocytes # 0.0 L Monocytes % 0.5 Neutrophils # 7.8 H Neutrophils % 91.6 H Nucleated Red Blood Cells # 0.0 Nucleated Red Blood Cells % 0.0 Platelet Count 200 Potassium Level 4.2 Red Blood Count 4.20 L Red Cell Distribution Width 13.4 Sodium Level 142 Total Bilirubin 0.3 Total Protein 7.5 # Uric Acid 8.9 H White Blood Count 8.5 # Medications Medications Current Medications Dextrose/Sodium Chloride (D5-1/2ns) 1,000 ml @ 100 mls/hr Q10H IV Last administered on 06/27/16 17:10; Admin Dose 100 MLS/HR; Start 06/25/16 at 05:51 Ondansetron HCl (Zofran Inj) 4 mg Q6H PRN IV NAUSEA AND/OR VOMITING Last administered on 06/25/16 06:26; Admin Dose 4 MG; Start 06/25/16 at 06:00 Acetaminophen (Tylenol Tab) 650 mg Q6H PRN PO PAIN LEVEL 1-3 OR FEVER; Start at 06:00 Acetaminophen/ Hydrocodone Bitart ([place] (5/325)) 1 tab Q6H PRN PO MODERATE PAIN LEVEL 4-6 Last administered on 06/27/16 15:28; Admin Dose 1 TAB; Start 03/31 at 06:00 Docusate Sodium (Colace) 100 mg Q12H PRN PO CONSTIPATION Last administered on 05:30; Admin Dose 100 MG; Start 06/25/16 at 06:00 Magnesium Hydroxide (Milk Of Mag) 30 ml DAILY PRN PO CONSTIPATION Last administered on 06/27/16 17:10; Admin Dose 30 ML; Start 06/25/16 at 06:00 Loratadine (Claritin) 10 mg DAILY PO Last administered on 06/27/16 08:06; Admin Dose 10 MG; Start 06/25/16 at 09:00 Colchicine (Colchicine) 0.6 mg BID PO ; Start 06/27/16 at 22:30 Hydromorphone HCl (Dilaudid) 1 mg Q6 PRN IV PAIN; Start 06/27/16 at 18:00 Ibuprofen (Motrin) 800 mg Q6H PRN PO MODERATE PAIN LEVEL 4-6; Start 06/27/16 at 17:30 EVENS BOLAND MD Jun 27, 2016 17:57
[2016-06-27] MEDS ORDERED: AL HYDROX/MG HYDROX/SIMETH 30 ML CUP PO PRN (18:00)
[2016-06-27 19:03] LABS: ADD UMIC NO; URINE BILIRUBIN (Dip) NEGATIVE (NEGATIVE); URINE BLOOD (Dip) NEGATIVE (NEGATIVE); URINE COLOR LT. YELLOW (YELLOW); URINE GLUCOSE (Dip) NEGATIVE (NEGATIVE); URINE KETONES (Dip) NEGATIVE (NEGATIVE); URINE LEUKOCYTE ESTERASE (Dip) NEGATIVE (NEGATIVE); URINE NITRITE (Dip) NEGATIVE (NEGATIVE); URINE TOTAL PROTEIN (Dip) NEGATIVE (NEGATIVE); URINE UROBILINOGEN (Dip) 0.2 E.U./dL (0.1-1.0)
--- NOTE | 2016-06-27 19:11 | PN ---
Date/Time of Note Date/Time of Note DATE: 06/27/16 TIME: 19:10 Assessment/Plan Lines/Catheters IV Catheter Type (from Nrs): Peripheral IV Che[place] in Place (from Nrs): No Assessment/Plan Chief Complaint/Hosp Course 1. Abdominal pain with history of chronic recurrent pancreatitis; however, most recent imaging reports are reviewed and laboratory reviewed. There is no evidence of pancreatitis on either. The patient does have a questionable history of drug and alcohol abuse. I highly recommend further investigation with imaging at our facility and a tox screen. There is no evidence of gallstones thus far that require cholecystectomy. Continue GI workup for further evaluation and treatment. Consider treating his pain instead of narcotics with IV Tylenol, and Toradol and Ultram. 2. Dermatitis, questionable scabies, being ruled out. 3. Fatty liver history. Encourage nutrition optimization. Encourage complete cessation of alcohol use. 4. Anemia without evidence of acute blood loss. Continue close observation. 5. Gout history. Continue medical management. 6. Hyperlipidemia history. Continue medical management and nutrition optimization. Thank you Problems: Subjective 24 Hr Interval Summary Pain improving. MRCP negative. No f/c. No n/v. No cp/sob. No cough. No petty/ dizzy/visual or neuro changes. No dysuria. Min bloating. Bowel function. Exam/Review of Systems Vital Signs Vitals Vital Signs Date Time Temp Pulse Resp B/P Pulse Ox O2 Delivery O2 Flow Rate FiO2 06/27/16 08:38 98.0 79 18 137/83 96 06/26/16 20:00 Room Air Intake and Output 06/26/16 06/26/16 06/27/16 15:00 23:00 07:00 Intake Total 550 ml 1220 ml 1350 ml Output Total 1200 ml 2500 ml Balance 550 ml 20 ml -1150 ml Exam Free Text/Dictation Constitutional: alert, obese, oriented, No distress Psych: nl mood/affect, No anxiety Head: atraumatic, normocephalic Eyes: EOMI, PERRL, nl conjunctiva, nl sclera, No icteric ENMT: mucosa pink and moist, nl external ears & nose, nl lips & teeth Neck: non-tender, supple, No jvd Respiratory: normal air movement, No congested cough, No labored breathing Cardiovascular: regular rate and rhythm, No edema Gastrointestinal: soft, tender (min), No firm, No rebound or guarding Genitourinary - Male: nl penis, nl scrotum Musculoskeletal: nl extremities to inspection, nl gait and stance, No joint tenderness Extremities: normal pulses, No calf tenderness, No edema 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: nl mental status, nl speech, No confused, No lethargic Skin: nl turgor, No diaphoresis, No ecchymosis, No rash or lesions Lymph: nl lymph nodes Results Result Diagram: 06/27/16 0436 06/27/16 0436 MARI BOONE MD Jun 27, 2016 19:11
--- NOTE | 2016-06-27 20:26 | PN ---
Date/Time of Note Date/Time of Note DATE: 06/27/16 TIME: 20:23 Assessment/Plan VTE Prophylaxis VTE Prophylaxis Intervention: SCD's Lines/Catheters IV Catheter Type (from Nrsg): Peripheral IV Urinary Cath still in place: No Assessment/Plan Assessment/Plan Assessment: * Chronic relapsing pancreatitis * No evidence of active pancreatitis or pseudocyst * Rule out treatable anatomic abnormality such as stricture * No evidence of biliary pathology * Chronic pain opiate dependent/ * Obesity * Gout Plan: * Reintroduce diet * Add Reglan * Switch to p.o. meds * Outpatient pain management * Safe for outpatient management of tolerating diet and pain controlled Subjective 24 Hr Interval Summary Free Text/Dictation Course reviewed with nursing staff Patient complaint of nausea and vomiting with clear liquids Patient continues to have significant pain now mostly in the back We will add Reglan to his regimen Will advance diet as tolerated Recommend switching to p.o. meds Patient will benefit from pain management as an outpatient Exam/Review of Systems Vital Signs Vitals Vital Signs Date Time Temp Pulse Resp B/P Pulse Ox O2 Delivery O2 Flow Rate FiO2 06/27/16 08:38 98.0 79 18 137/83 96 06/26/16 20:00 Room Air Intake and Output 06/26/16 06/26/16 06/27/16 15:00 23:00 07:00 Intake Total 550 ml 1220 ml 1350 ml Output Total 1200 ml 2500 ml Balance 550 ml 20 ml -1150 ml Exam Constitutional: alert, obese, oriented, well developed Psych: nl mood/affect, no complaints Head: atraumatic, normocephalic Eyes: EOMI, PERRL, nl conjunctiva, nl lids, nl sclera ENMT: nl external ears & nose, nl lips & teeth, nl nasal mucosa & septum Neck: non-tender, supple Respiratory: clear to auscultation, normal air movement Cardiovascular: nl pulses, regular rate and rhythm Gastrointestinal: nl liver, spleen, soft, tender (Epigastrium) Musculoskeletal: nl extremities to inspection, nl gait and stance Extremities: normal pulses Skin: nl turgor, No rash or lesions Lymph: nl lymph nodes Results Result Diagram: 06/27/16 0436 06/27/16 0436 Results 24 hrs Laboratory Tests Test 06/27/16 04:36 06/27/16 18:50 Alanine Aminotransferase (ALT/SGPT) 23 Albumin 4.2 Albumin/Globulin Ratio 1.27 Alkaline Phosphatase 95 Amylase Level 41 Anion Gap 17 H Aspartate Amino Transf (AST/SGOT) 18 Basophils # 0.0 Basophils % 0.1 Blood Urea Nitrogen 5 L Calcium Level 9.7 Carbon Dioxide Level 28 Chloride Level 101 Creatinine 0.64 Direct Bilirubin 0.00 Eosinophils # 0.0 Eosinophils % 0.0 Globulin 3.30 H Glucose Level 229 #H Hematocrit 37.6 L Hemoglobin 13.3 L Indirect Bilirubin 0.3 Lipase 24 Lymphocytes # 0.7 L Lymphocytes % 7.8 L Mean Corpuscular Hemoglobin 31.7 Mean Corpuscular Hemoglobin Concent 35.3 Mean Corpuscular Volume 89.6 Mean Platelet Volume 8.8 Monocytes # 0.0 L Monocytes % 0.5 Neutrophils # 7.8 H Neutrophils % 91.6 H Nucleated Red Blood Cells # 0.0 Nucleated Red Blood Cells % 0.0 Platelet Count 200 Potassium Level 4.2 Red Blood Count 4.20 L Red Cell Distribution Width 13.4 Sodium Level 142 Total Bilirubin 0.3 Total Protein 7.5 # Uric Acid 8.9 H White Blood Count 8.5 # Urine Bilirubin NEGATIVE Urine Clarity CLEAR Urine Color LT. YELLOW Urine Glucose NEGATIVE Urine Hemoglobin NEGATIVE Urine Ketones NEGATIVE Urine Leukocyte Esterase NEGATIVE Urine Nitrite NEGATIVE Urine Specific Hamer <=1.005 L Urine Total Protein NEGATIVE Urine Urobilinogen 0.2 E.U./dL Urine pH 6.0 Medications Medications Current Medications Dextrose/Sodium Chloride (D5-1/2ns) 1,000 ml @ 100 mls/hr Q10H IV Last administered on 06/27/16 17:10; Admin Dose 100 MLS/HR; Start 06/25/16 at 05:51 Ondansetron HCl (Zofran Inj) 4 mg Q6H PRN IV NAUSEA AND/OR VOMITING Last administered on 06/25/16 06:26; Admin Dose 4 MG; Start 06/25/16 at 06:00 Acetaminophen (Tylenol Tab) 650 mg Q6H PRN PO PAIN LEVEL 1-3 OR FEVER; Start at 06:00 Acetaminophen/ Hydrocodone Bitart ([place] (5/325)) 1 tab Q6H PRN PO MODERATE PAIN LEVEL 4-6 Last administered on 06/27/16 15:28; Admin Dose 1 TAB; Start 03/31 at 06:00 Docusate Sodium (Colace) 100 mg Q12H PRN PO CONSTIPATION Last administered on 05:30; Admin Dose 100 MG; Start 06/25/16 at 06:00 Magnesium Hydroxide (Milk Of Mag) 30 ml DAILY PRN PO CONSTIPATION Last administered on 06/27/16 17:10; Admin Dose 30 ML; Start 06/25/16 at 06:00 Loratadine (Claritin) 10 mg DAILY PO Last administered on 06/27/16 08:06; Admin Dose 10 MG; Start 06/25/16 at 09:00 Colchicine (Colchicine) 0.6 mg BID PO ; Start 06/27/16 at 22:30 Hydromorphone HCl (Dilaudid) 1 mg Q6 PRN IV PAIN; Start 06/27/16 at 18:00 Ibuprofen (Motrin) 800 mg Q6H PRN PO MODERATE PAIN LEVEL 4-6; Start 06/27/16 at 17:30 Famotidine (Pepcid) 20 mg BID PO ; Start 06/27/16 at 21:00 Al Hydrox/Mg Hydrox/Simethicone (Mag-Al Plus) 30 ml Q6H PRN PO GASTROINTESTINAL UPSET; Start 06/27/16 at 18:00 AUSTYN CHAVEZ MD Jun 27, 2016 20:26
[2016-06-27 20:42] VITALS: BP 122/76; RESP 18
[2016-06-27] MEDS ORDERED: FAMOTIDINE 20 MG TAB PO SCH (21:00)
[2016-06-27] MEDS: COLCHICINE 0.6 MG TAB PO SCH (21:46)
[2016-06-28] MEDS: DEXTROSE 5%-0.45% NACL 1,000 ML IV SCH (03:44)
[2016-06-28] MEDS: HYDROCODONE/APAP (5/325) TAB PO PRN ×3 (03:46→20:45)
[2016-06-28] MEDS: HYDROmorphONE 1 MG/ML SYG IV PRN ×4 (05:12→23:50)
[2016-06-28 05:54] LABS: BASOPHILS % 0.1 % (0.0-2.0); HEMATOCRIT 34.5 % (42.0-52.0); HEMOGLOBIN 11.9 g/dl (14.0-18.0); LYMPHOCYTES # 1.5 10^3/ul (0.8-2.9); LYMPHOCYTES % 19.2 % (15.0-51.0); MEAN CORPUSCULAR HEMOGLOBIN 31.4 pg (29.0-33.0); MEAN CORPUSCULAR HGB CONC 34.4 g/dl (32.0-37.0); MEAN CORPUSCULAR VOLUME 91.2 fl (82.0-101.0); MEAN PLATELET VOLUME 8.8 fl (7.4-10.4); MONOCYTE # 0.6 10^3/ul (0.3-0.9); MONOCYTES % 7.6 % (0.0-11.0); NEUTROPHIL # 5.8 10^3/ul (1.6-7.5); NEUTROPHILS % 73.1 % (39.0-77.0); PLATELET COUNT 205 10^3/UL (140-440); RED BLOOD COUNT 3.78 10^6/ul (4.70-6.10); RED CELL DISTRIBUTION WIDTH 14.1 % (11.5-14.5)
[2016-06-28 05:59] LABS: ALBUMIN 3.7 g/dl (3.3-4.9)
[2016-06-28 06:00] LABS: POTASSIUM 4.2 mmol/L (3.5-5.1)
[2016-06-28 06:02] LABS: ALBUMIN/GLOBULIN RATIO 1.32; BILIRUBIN,INDIRECT 0.1 mg/dl (0-1.1); BILIRUBIN,TOTAL 0.1 mg/dl (0.2-1.3); CREATININE 0.52 mg/dl (0.61-1.24); PHOSPHORUS 3.2 mg/dl (2.5-4.9); TOTAL PROTEIN 6.5 g/dl (6.1-8.1)
[2016-06-28 06:03] LABS: CALCIUM 9.4 mg/dl (8.4-10.2); MAGNESIUM 1.9 mg/dl (1.7-2.5)
[2016-06-28 06:16] LABS: INR 1.07; PROTIME 13.9 Sec (12.2-14.2); PT RATIO 1.1
[2016-06-28 06:17] LABS: CONDITION 1
[2016-06-28 06:26] LABS: THYROID STIMULATING HORMONE 0.644 MIU/L (0.465-4.680)
[2016-06-28] MEDS: PANCRELIPASE PO SCH ×3 (07:35→17:35)
[2016-06-28 08:24] VITALS: BP 134/88; RESP 19
[2016-06-28] MEDS: LORATADINE 10 MG TAB PO SCH (09:58)
[2016-06-28] MEDS: ONDANSETRON 4 MG INJ IV PRN (09:58)
--- NOTE | 2016-06-28 10:17 | PDOCDIS ---
Discharge Instructions DIAGNOSIS Discharge Diagnosis: abd pain CONDITION Patient Condition: Good HOME CARE INSTRUCTIONS: Special Diet: Clear Liquid; may advance to regular diet; bland, no alcohol/ fatty foods. ACTIVITY: Activity Restrictions: No Restrictions Do not Drive (Do not drive if dizzy) FOLLOW UP/APPOINTMENTS Appointments Appointment primary care 1 week Referral pain management 1-[address] Borja 2 weeks EVENS BOLAND MD Jun 28, 2016 10:17
[2016-06-28] MEDS ORDERED: IBUP800T25 PO (10:19)
[2016-06-28] MEDS ORDERED: PANT40TA4 PO (10:19)
[2016-06-28] MEDS ORDERED: COLC0.6T6 PO (10:19)
[2016-06-28] MEDS ORDERED: UDREG PO (10:19)
--- NOTE | 2016-06-28 10:22 | PDOCDIS ---
Discharge Instructions DIAGNOSIS Discharge Diagnosis: Abdominal pain CONDITION Patient Condition: Good HOME CARE INSTRUCTIONS: Special Diet: Clear Liquid; may advance to regular diet; bland, no alcohol/ fatty foods. ACTIVITY: Activity Restrictions: No Restrictions Do not Drive (Do not drive if dizzy) FOLLOW UP/APPOINTMENTS Appointments Appointment primary care doctor 1 week [facility]? Appointment Dr. Borja 2 weeks Referral to pain management 2 weeks OTHER ORDERS: Other Orders: Take omeprazole Prilosec or Protonix twice daily. Take Reglan for 3 days due to nausea and vomiting. And then may take as needed. May take Tylenol or Motrin for pain. Take colchicine twice daily for maybe 3 days then may change to once daily as gout improves. Must stay hydrated for gout; drink about 1-2 L of fluids per day at least until gout goes away. SCHOOL/WORK RELEASE May return to School/Work on: Jun 28, 2016 EVENS BOLAND MD Jun 28, 2016 10:22
[2016-06-28] MEDS: COLCHICINE 0.6 MG TAB PO SCH ×2 (11:30→20:45)
[2016-06-28] MEDS: PANTOPRAZOLE (EC) 40 MG TAB PO SCH ×2 (11:30→17:45)
[2016-06-28] MEDS: METOCLOPRAMIDE (1 MG/ML) 10 ML CUP PO SCH ×3 (11:30→22:37)
--- NOTE | 2016-06-28 12:52 | DS ---
DATE OF ADMISSION: 06/25/2016 DATE OF DISCHARGE: 06/28/2016 PRIMARY CARE PHYSICIAN: Brendan Anne. PE MANAGER: Drs. Borja and Evan. DIAGNOSIS ON ADMISSION: Abdominal pain. DIAGNOSES ON DISCHARGE: 1. Abdominal pain, possible gastritis. 2. Acute on chronic gout. 3. Probable alcoholism. 4. History of colitis. 5. History of diverticulosis. 6. Probable chronic recurrent pancreatitis. 7. History of pseudocyst. 8. Cholelithiasis. 9. Possible past drug and substance abuse. 10. Anemia. 11. Dyslipidemia. 12. Dermatitis. 13. Fatty liver disease. 14. Possible history of deep venous thrombus. 15. Possible hemangioma. 16. Depression and anxiety. 17. Prediabetes. HOSPITAL COURSE: This is a 40-year-old gentleman admitted with abdominal pain, vomiting, epigastric and left flank. No known aggravating, no known relieving factors, ____food and liquids, states the pain medicines are the only thing that helps him. Denies any heavy alcohol use, but there is a his tory of alcoholism. Denies any present substance abuse. No hematemesis, hematochezia. He is havin g bowel activity. The patient states he had chronic pancreatitis. It does not sound he has any history of cholecysti tis or autoimmune pathology or severe triglycerides/dyslipidemia. I believe there are issues with alcoholism. The patient was seen by gastroenterology and general surgery. The patient did not require ERCP, EGD or laparoscopic cholecystectomy, etc. The patient at this time has no acute abdominal disease, did not require surgery for further hospitalization. I do find evidence of pain seeking behavior. I reinforced the situation and the management plan and options with the patient. I recommended he obtains his outside hospital records for review and follow up with his local physicians. If there i s any evidence of cause of pancreatitis, we will further look into treatment plan, but other than th at, the patient may benefit more than anything with pain management and maybe behavioral health. Víctor cardoso was previously seen at [facility], I believe associated with [facility]. He does not identify any history of alcohol and opiate addiction. Methadone therapy was suggested by physicians to prevent possible future addictions. The patient may have had an endoscopic ultrasound FNA biopsy in April 2014. Obviously this was n ot done at this hospital, and I do not have those results. IMAGING: MRI and MRCP of the abdomen did not show any acute process There is no cholelithiasis, ch olecystitis or choledocholithiasis, no acute process of the abdomen, no pancreatic inflammation. No filling deficits and the gallbladder is unremarkable. There is no portal vein thrombosis. Simple right renal cyst. MRSA nares negative. LABORATORIES: Urine unremarkable. Urine toxicity screen is still pending. INR 1. Sodium 144, po tassium 4, chloride 104, bicarbonate 29, BUN of 7, creatinine 0.5, glucose of 120, calcium 9, magnes ium 1.9, phosphorus 3. Bilirubin 0, AST and ALT of 13 and 25, alkaline phosphatase of 76, protein _ ___, albumin of 3.7. TSH is 0.6, lipase of 24. A1c of 6.5. Uric acid of 8.9. White cell count of 8, hemoglobin and hematocrit of 11 and 34, MCV of 91, platelets of 205. The patient may have an element of gastritis, who was double proton pump inhibitor for the time beatriz mast, along with Reglan. DISCHARGE PLAN: Home. Follow up with primary in [address] Borja in 2 weeks. Pain management referral. DIET: Clear liquid and then may advance to regular diet, soft, bland, no alcohol or fatty food. ACTIVITY: As tolerated. No driving if dizzy. DURABLE MEDICAL EQUIPMENT: None. CODE STATUS: FULL. CONDITION: Good. ALLERGIES: SULFA ANTIBIOTICS. BARRIERS TO DISCHARGE: None. PENDING TESTS: Urine tox screen. FUNCTIONAL STATUS: The patient awake, alert, agrees with plan of care and all options. STOPPED MEDICATIONS: None. CONTINUED MEDICATIONS: 1. Loratadine. 2. Zofran 4 mg every 8 as needed for nausea, vomiting. 3. Creon DR 6000 capsules p.o. 3 times daily. 4. Omeprazole 20 b.i.d. or Protonix. ALTERED MEDICATIONS: None. NEW MEDICATIONS: 1. Motrin 800 mg every 6 hours p.r.n. abdominal pain. 2. Colchicine 0.6 mg twice daily and then once daily, once gout improves . 3. Reglan 10 mg q. 8 hours for 3 days and then as needed for nausea and vomiting. 4. Protonix or Omeprazole 40 mg twice daily. Dictated By: EVENS CUMMINGS/SARAH BETH Conf#: [id number] DID#: [id number] CC: MARI BOONE MD; AUSTYN BORJA;*[facility]*
[2016-06-28 20:21] VITALS: BP 142/86; RESP 18
--- NOTE | 2016-06-28 20:48 | PN ---
Date/Time of Note Date/Time of Note DATE: 06/28/16 TIME: 20:48 Assessment/Plan Lines/Catheters IV Catheter Type (from Nrs): Peripheral IV Cheney in Place (from Nrs): No Assessment/Plan Chief Complaint/Hosp Course 1. Abdominal pain with history of chronic recurrent pancreatitis; however, most recent imaging reports are reviewed and laboratory reviewed. There is no evidence of pancreatitis on either. The patient does have a questionable history of drug and alcohol abuse. I highly recommend further investigation with imaging at our facility and a tox screen. There is no evidence of gallstones thus far that require cholecystectomy. Continue GI workup for further evaluation and treatment. Consider treating his pain instead of narcotics with IV Tylenol, and Toradol and Ultram. 2. Dermatitis, questionable scabies, being ruled out. 3. Fatty liver history. Encourage nutrition optimization. Encourage complete cessation of alcohol use. 4. Anemia without evidence of acute blood loss. Continue close observation. 5. Gout history. Continue medical management. 6. Hyperlipidemia history. Continue medical management and nutrition optimization. Thank you Problems: Subjective 24 Hr Interval Summary Pain improving. MRCP negative. No f/c. No n/v. No cp/sob. No cough. No petty/ dizzy/visual or neuro changes. No dysuria. Min bloating. Bowel function. Exam/Review of Systems Vital Signs Vitals Vital Signs Date Time Temp Pulse Resp B/P Pulse Ox O2 Delivery O2 Flow Rate FiO2 06/28/16 20:21 98.4 95 18 142/86 96 06/26/16 20:00 Room Air Intake and Output 06/27/16 06/27/16 06/28/16 15:00 23:00 07:00 Intake Total 1460 ml 1420 ml Output Total 1500 ml 2300 ml Balance -40 ml -880 ml Exam Free Text/Dictation Constitutional: alert, obese, oriented, No distress Psych: nl mood/affect, No anxiety Head: atraumatic, normocephalic Eyes: EOMI, PERRL, nl conjunctiva, nl sclera, No icteric ENMT: mucosa pink and moist, nl external ears & nose, nl lips & teeth Neck: non-tender, supple, No jvd Respiratory: normal air movement, No congested cough, No labored breathing Cardiovascular: regular rate and rhythm, No edema Gastrointestinal: soft, tender (min), No firm, No rebound or guarding Genitourinary - Male: nl penis, nl scrotum Musculoskeletal: nl extremities to inspection, nl gait and stance, No joint tenderness Extremities: normal pulses, No calf tenderness, No edema 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: nl mental status, nl speech, No confused, No lethargic Skin: nl turgor, No diaphoresis, No ecchymosis, No rash or lesions Lymph: nl lymph nodes Results Result Diagram: 06/28/16 0445 06/28/16 0445 MARI BOONE MD Jun 28, 2016 20:48
[2016-06-29] MEDS: HYDROCODONE/APAP (5/325) TAB PO PRN ×2 (03:54→10:26)
[2016-06-29] MEDS: METOCLOPRAMIDE (1 MG/ML) 10 ML CUP PO SCH ×2 (05:49→14:00)
[2016-06-29] MEDS: HYDROmorphONE 1 MG/ML SYG IV PRN ×2 (05:50→12:09)
[2016-06-29] MEDS: PANTOPRAZOLE (EC) 40 MG TAB PO SCH (05:57)
[2016-06-29] MEDS: PANCRELIPASE PO SCH ×2 (07:35→11:30)
[2016-06-29 08:00] VITALS: BP 149/92; RESP 20
[2016-06-29] MEDS: LORATADINE 10 MG TAB PO SCH (09:18)
[2016-06-29] MEDS: COLCHICINE 0.6 MG TAB PO SCH (09:18)
--- NOTE | 2016-06-29 15:23 | PN ---
Date/Time of Note Date/Time of Note DATE: 06/29/16 TIME: 15:21 Assessment/Plan VTE Prophylaxis VTE Prophylaxis Intervention: ambulation Lines/Catheters IV Catheter Type (from Nrs): Peripheral IV Urinary Cath still in place: No Assessment/Plan Chief Complaint/Hosp Course S: 06/28: Mod pain- Epigastric, lt flank. Aggravated w eating. States he had nausea and vomiting. Documented? No fevers chills. Ongoing gout? 06/29: Couldnt get a ride home yesterday. No further vomiting. Positive nausea. Left flank pain. No dysuria. Positive BMs. O: Vss PE No pallor icterus Reg cvat Bs + mod tenderness, nd. No rigidity/rebound. Probable voluntary guarding. No flank ecchymosis. No cvat Ext: No edema A/P 1. Abd pain/vomiting. No evidence of pancreatitis, pyelonephritis, acute abdomen. Gastritis vs chr pain? Stable, supportive care. Dc home. 2. Chr pain disorder? Counseling, outpt pain management 3. Past alcoholism? 4. Ac/ chr gout 5. Possible ho colitis/diverticulitis/pseudocyst 6. Chr pancreatitis? etoh related? I asked pt to obtain old records from [facility]. Problems: Exam/Review of Systems Vital Signs Vitals Vital Signs Date Time Temp Pulse Resp B/P Pulse Ox O2 Delivery O2 Flow Rate FiO2 06/29/16 08:00 98.2 90 20 149/92 96 06/26/16 20:00 Room Air Intake and Output 06/28/16 06/28/16 06/29/16 15:00 23:00 07:00 Intake Total 600 ml 240 ml Output Total 1100 ml 700 ml Balance -500 ml -460 ml Results Result Diagram: 06/28/16 0445 06/28/16 0445 Medications Medications Current Medications Ondansetron HCl (Zofran Inj) 4 mg Q6H PRN IV NAUSEA AND/OR VOMITING Last administered on 06/28/16 09:58; Admin Dose 4 MG; Start 06/25/16 at 06:00 Acetaminophen (Tylenol Tab) 650 mg Q6H PRN PO PAIN LEVEL 1-3 OR FEVER; Start at 06:00 Docusate Sodium (Colace) 100 mg Q12H PRN PO CONSTIPATION Last administered on 05:30; Admin Dose 100 MG; Start 06/25/16 at 06:00 Magnesium Hydroxide (Milk Of Mag) 30 ml DAILY PRN PO CONSTIPATION Last administered on 06/27/16 17:10; Admin Dose 30 ML; Start 06/25/16 at 06:00 Loratadine (Claritin) 10 mg DAILY PO Last administered on 06/29/16 09:18; Admin Dose 10 MG; Start 06/25/16 at 09:00 Colchicine (Colchicine) 0.6 mg BID PO Last administered on 06/29/16 09:18; Admin Dose 0.6 MG; Start 06/27/16 at 22:30 Ibuprofen (Motrin) 800 mg Q6H PRN PO MODERATE PAIN LEVEL 4-6; Start 06/27/16 at 17:30 Al Hydrox/Mg Hydrox/Simethicone (Mag-Al Plus) 30 ml Q6H PRN PO GASTROINTESTINAL UPSET; Start 06/27/16 at 18:00 Metoclopramide HCl (Reglan Liq) 10 mg Q8 PO Last administered on 06/29/16 05: 49; Admin Dose 10 MG; Start 06/28/16 at 10:00 Pantoprazole (Protonix Tab) 40 mg BID@,18 PO Last administered on 06/29/16 05:57; Admin Dose 40 MG; Start 06/28/16 at 10:30 EVENS BOLAND MD Jun 29, 2016 15:23
[2016-06-30] MEDS ORDERED: CREON (12k-38k-60k) 1 CAP PO SCH (08:00)
[2016-06-30] MEDS ORDERED: OXYC-209 PO (15:18)
[2016-06-30] MEDS ORDERED: IND50 PO (15:18)
[2016-06-30] MEDS ORDERED: ALPR1TAB2 PO (15:18)
[2016-06-30] MEDS ORDERED: FEBU40TA PO (15:18)
== END 2016-06-29 17:13 | disposition home or self-care (01) | DRG 392 ==
LOC: PP2 04:01
PROVIDERS: ADMIT Internal Medicine; ATTEND Internal Medicine
DX: K29.70 Gastritis, unspecified, without bleeding (principal); F11.20 Opioid dependence, uncomplicated; K76.0 Fatty (change of) liver, not elsewhere classified; K86.1 Other chronic pancreatitis; L30.9 Dermatitis, unspecified; E66.9 Obesity, unspecified; G89.29 Other chronic pain; D64.9 Anemia, unspecified; I10 Essential (primary) hypertension; M1A.9XX0 Chronic gout, unspecified, without tophus (tophi); M10.9 Gout, unspecified; F10.20 Alcohol dependence, uncomplicated; E78.5 Hyperlipidemia, unspecified; R73.03 Prediabetes; Z76.5 Malingerer [conscious simulation]; Z88.2 Allergy status to sulfonamides; Z86.718 Personal history of other venous thrombosis and embolism
CPT/HCPCS: 74181; 80053; 80307; 81003; 82150; 83036; 83690; 83735; 84100; 84443; 84560; 85025; 85610; 87081; 90686; C9113; J1170; J2405; J2930; J3475; J7042

== ENCOUNTER 2016-06-30 07:16 | Inpatient (IN) | payer OTHER ==
[~2016-06-30] VITALS: Ht 172.7 cm; Wt 86.0 kg
[~2016-06-30 07:16] MED LIST changes: +COLC0.6T6 PO; +IBUP800T25 PO; +LIPA1CAP2 PO; +LORA10TA3 PO; +OMEP20CA16 PO; +PANT40TA4 PO; +UDREG PO
[2016-06-30 13:30] VITALS: BP 160/97; PULSE 88; RESP 18; Ht 172.7 cm; Wt 86.0 kg
[2016-06-30] MEDS ORDERED: FEBU40TA PO (15:18)
[2016-06-30] MEDS ORDERED: OXYC-209 PO (15:18)
[2016-06-30] MEDS ORDERED: ALPR1TAB2 PO (15:18)
[2016-06-30] MEDS ORDERED: IND50 PO (15:18)
[2016-06-30] MEDS ORDERED: ONDANSETRON 4 MG INJ IV PRN (16:00)
[2016-06-30] MEDS ORDERED: ACETAMINOPHEN 650 MG SUPP PR PRN (16:00)
[2016-06-30] MEDS ORDERED: IBUPROFEN 600 MG TAB PO PRN (16:00)
[2016-06-30] MEDS ORDERED: NACL 0.9% 3 ML SYG IV SCH (16:00)
[2016-06-30] MEDS ORDERED: ACETAMINOPHEN 325 MG TAB PO PRN (16:00)
[2016-06-30] MEDS ORDERED: HYDROmorphONE 1 MG/ML SYG IV PRN (16:00)
[2016-06-30] MEDS ORDERED: BARIUM SULF 2% 450 ML BTL (BERRY SMOOTHIE) PO ONE (17:00)
--- NOTE | 2016-06-30 18:48 | HP ---
DATE OF ADMISSION: 06/30/2016 PRIMARY CARE PHYSICIAN: [facility]. FIBERGLASS MACHINE OPERATOR: Dr. Borja. CHIEF COMPLAINT: Abdominal pain. HISTORY OF PRESENT ILLNESS: This is a 40-year-old gentleman who presents from an outside ER for tra nsfer for continuity with his insurance. The patient is seen in [facility] ER with abdominal pain, nausea, vomiting, cannot hold anything uriel n, epigastric burning, radiating to left upper quadrant. Vital signs are stable, and they did not s end me nay lab work results, but I was told the LFTs and lipase were all normal. Patient is awake, alert. No stephanie icterus, no hematemesis. Possible subjective fever. No chills, no rigors. Denies any alcohol. Of note, the patient went home from this hospital 24 hours ago. The issues are recurrent abdominal pain and questionable nausea, vomiting. The patient was seen at [facility] ER in April and noted to have pain-seeking behavior. His u ltrasound at that time showed fatty liver disease and a small 15-mm hepatic hemangioma. PAST MEDICAL HISTORY: Past alcoholism, chronic gout, history of colitis, history of diverticulitis, history of pancreatitis/chronic pancreatitis/pseudocyst, history of DVT, history of opiate addiction , anxiety, depression, nonadherence, dermatitis, ankle bone spur. PAST SURGICAL HISTORY: None. Although he had a possible ERCP-guided FNA biopsy in April 2014. ALLERGIES: SULFA AND BACTRIM. SOCIAL HISTORY: Denies present alcohol. No tobacco. Questionable opiate history. 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 FAMILY HISTORY: Father with a stroke. Mother with ovarian cancer. REVIEW OF SYSTEMS: NEUROLOGICAL: Positive headache. No loss of speech or vision. CARDIOVASCULAR: No chest pain. Positive dyspnea. No edema. LUNGS: Positive dyspnea, cough. No edema. ABDOMEN: Pain, nausea, vomiting. Possible diarrhea. HEMATOLOGIC: No hematochezia, melena, hematuria, hematemesis. MUSCULOSKELETAL: No gait dysfunction. No rash, no itching, no edema. GENITOURINARY: No dysuria, subjective fever. Positive abdominal pain, but not lower pain. ENDOCRINE: No previous diabetes, dyslipidemia, or thyroid dysfunction. PHYSICAL EXAMINATION: HEENT: Extraocular movements are intact. No pallor, no icterus. No adenopathy. No carotid bruits . No JVD. No droop. CARDIOVASCULAR: S1, S2 regular. No murmur, rubs, or gallops. LUNGS: Diminished breath sounds bilaterally. No tachypnea. ABDOMEN: Bowel sounds are present. Mild to moderate deep abdominal tenderness. No rigidity, no re bound. Positive voluntary guarding. No flank ecchymosis. EXTREMITIES: Without any edema. LABS: Pending. ASSESSMENT: 1. Abdominal pain, unknown etiology, possible gastritis. Probable pain-seeking behavior. 2. Probable chronic alcoholic pancreatitis. No recent pseudocyst or pseudoaneurysm, etc., or intra -abdominal fluid collections. 3. Acute on chronic gout. 4. Nonadherence 5. Cholelithiasis. 6. Fatty liver disease. 7. Adjustment disorder. 8. Anemia. 9. Prediabetes. PLAN: Admit to med/surg, consult GI, consult social. Will try to obtain records from [facility] clin ic where the patient states he has been diagnosed with some sort of chronic intraabdominal process, maybe pancreatitis. No present alcohol. No abnormalities. No elevated bilirubin. No evidence for stones. Cholesterol panel will be done. No history of triglyceride issues. The patient may need ongoing pain management referral and social service assistance. Dictated By: EVENS BOLAND MD AC/NTS Conf#: [id number] DID#: [id number] CC: AUSTYN BORJA;*EndCC*
[2016-06-30] MEDS: SOD CHLORIDE 0.9% 1,000 ML IV SCH (18:50)
[2016-06-30] MEDS: ENOXAPARIN 40 MG/0.4 ML SYG SC SCH (18:51)
[2016-06-30] MEDS: FAMOTIDINE 20 MG TAB PO SCH (20:48)
[2016-06-30] MEDS: traMADol 50 MG TAB PO PRN (21:06)
[2016-07-01] MEDS: HYDROmorphONE 1 MG/ML SYG IV PRN ×3 (00:27→17:05)
[2016-07-01] MEDS: SOD CHLORIDE 0.9% 1,000 ML IV SCH ×2 (01:59→06:42)
[2016-07-01 05:44] LABS: BASOPHILS % 0.2 % (0.0-2.0); EOSINOPHILS # 0.1 10^3/ul (0.0-0.5); EOSINOPHILS % 1.4 % (0.0-7.0); HEMATOCRIT 34.7 % (42.0-52.0); HEMOGLOBIN 12.1 g/dl (14.0-18.0); LYMPHOCYTES # 1.9 10^3/ul (0.8-2.9); LYMPHOCYTES % 40.3 % (15.0-51.0); MEAN CORPUSCULAR HEMOGLOBIN 31.1 pg (29.0-33.0); MEAN CORPUSCULAR HGB CONC 34.9 g/dl (32.0-37.0); MEAN CORPUSCULAR VOLUME 89.3 fl (82.0-101.0); MEAN PLATELET VOLUME 8.5 fl (7.4-10.4); MONOCYTE # 0.4 10^3/ul (0.3-0.9); MONOCYTES % 9.4 % (0.0-11.0); NEUTROPHIL # 2.3 10^3/ul (1.6-7.5); NEUTROPHILS % 48.7 % (39.0-77.0); PLATELET COUNT 231 10^3/UL (140-440); RED BLOOD COUNT 3.88 10^6/ul (4.70-6.10); RED CELL DISTRIBUTION WIDTH 13.4 % (11.5-14.5); UNCORRECTED WBC 4.7 10^3/ul (4.8-10.8); WHITE BLOOD COUNT 4.7 10^3/ul (4.8-10.8)
[2016-07-01 05:56] LABS: CONDITION 1
[2016-07-01 06:01] LABS: INR 1.05; PROTIME 13.7 Sec (12.2-14.2); PT RATIO 1.1
[2016-07-01 06:14] LABS: ALBUMIN 3.8 g/dl (3.3-4.9); POTASSIUM 4.2 mmol/L (3.5-5.1)
[2016-07-01 06:16] LABS: BILIRUBIN,INDIRECT 0.3 mg/dl (0-1.1); BILIRUBIN,TOTAL 0.3 mg/dl (0.2-1.3); CREATININE 0.61 mg/dl (0.61-1.24)
[2016-07-01 06:17] LABS: ALBUMIN/GLOBULIN RATIO 1.35; CALCIUM 9.5 mg/dl (8.4-10.2); PHOSPHORUS 3.4 mg/dl (2.5-4.9); TOTAL PROTEIN 6.6 g/dl (6.1-8.1)
[2016-07-01 06:18] LABS: MAGNESIUM 1.7 mg/dl (1.7-2.5)
[2016-07-01 06:30] LABS: HDL CHOLESTEROL 15 mg/dl (27-67); TRIGLYCERIDES 62 mg/dl (0-149)
[2016-07-01 06:33] LABS: CHOLESTEROL < 50 mg/dl (100-200)
[2016-07-01 07:30] VITALS: BP 172/87; RESP 18
[2016-07-01] MEDS: FAMOTIDINE 20 MG TAB PO SCH ×2 (08:29→20:56)
[2016-07-01 08:30] VITALS: BP 166/75; PULSE 66; PULSE 75
[2016-07-01] MEDS: ENOXAPARIN 40 MG/0.4 ML SYG SC SCH (08:33)
[2016-07-01 09:33] VITALS: BP 146/71; PULSE 91
--- NOTE | 2016-07-01 11:23 | CONS ---
Date/Time of Note Date/Time of Note DATE: 07/01/16 TIME: 11:14 Assessment/Plan Assessment/Plan Additional Assessment/Plan Abdominal pain * CT abdomen with and without contrast * Start Reglan every 6 hours * Stool OB * EGD if clinically indicated * Autoimmune markers * Case management consult for outpatient management with GI that can provide either EUS and capsule endoscopy if clinically indicated History of pancreatitis * MRCP on 06-25-16: There is NO cholelithiasis, cholecystitis, or choledocholithiasis. * Monitor lipase Further recommendations depend on clinical course Consultation Date/Type/Reason Admit Date/Time Jun 30, 2016 at 13:37 Hx of Present Illness 40-year-old male that was transferred from [facility] with same complaints of epigastric and right upper quadrant abdominal pain, nausea, and nonbloody bilious vomiting. Patient reports 9 pound weight loss between this hospitalization and current hospitalization. Patient denies fever chills and diarrhea. Patient denies family history of inflammatory bowel disease, but reports paternal grandfather with colon cancer. Patient denies previous colonoscopy. Patient reports cyst removal and drainage at [facility] in 2013 secondary to chronic pancreatitis. Will request records from [facility]. Patient denies current alcohol use, new medications, and autoimmune conditions. At bedside, patient reports intense epigastric pain and right lower abdominal pain with palpation. Past Surgical History Past Surgical Hx: no surgical history Social History Smoking Status: Never smoker Exam/Review of Systems Vital Signs Vitals Vital Signs Date Time Temp Pulse Resp B/P Pulse Ox O2 Delivery O2 Flow Rate FiO2 07/01/16 09:33 91 146/71 07/01/16 07:30 98.5 18 97 06/30/16 13:30 Room Air Intake and Output 06/30/16 06/30/16 07/01/16 15:00 23:00 07:00 Intake Total 240 ml 1100 ml Balance 240 ml 1100 ml Exam Constitutional: alert, oriented, well developed Psych: nl mood/affect Head: normocephalic Eyes: EOMI, nl conjunctiva, nl lids, nl sclera ENMT: nl external ears & nose, nl lips & teeth, nl nasal mucosa & septum Respiratory: normal air movement Cardiovascular: regular rate and rhythm Gastrointestinal: soft, tender (Epigastric and right lower quadrant) Musculoskeletal: nl extremities to inspection 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: PUMP AND BLOWER OPERATOR II-XII intact Results Result Diagram: 07/01/16 0449 07/01/16 0449 Results 24 hrs Laboratory Tests Test 07/01/16 04:49 Alanine Aminotransferase (ALT/SGPT) 35 Albumin 3.8 Albumin/Globulin Ratio 1.35 Alkaline Phosphatase 85 Anion Gap 19 H Aspartate Amino Transf (AST/SGOT) 25 Basophils # 0.0 Basophils % 0.2 Blood Urea Nitrogen 6 L Calcium Level 9.5 Carbon Dioxide Level 27 Chloride Level 101 Cholesterol Level < 50 L Cholesterol/HDL Ratio Creatinine 0.61 Direct Bilirubin 0.00 Eosinophils # 0.1 Eosinophils % 1.4 Globulin 2.80 Glucose Level 82 HDL Cholesterol 15 L Hematocrit 34.7 L Hemoglobin 12.1 L INR International Normalized Ratio 1.05 Indirect Bilirubin 0.3 LDL Cholesterol, Calculated Lactic Acid Level 0.9 Lipase 62 Lymphocytes # 1.9 Lymphocytes % 40.3 Magnesium Level 1.7 Mean Corpuscular Hemoglobin 31.1 Mean Corpuscular Hemoglobin Concent 34.9 Mean Corpuscular Volume 89.3 Mean Platelet Volume 8.5 Monocytes # 0.4 Monocytes % 9.4 Neutrophils # 2.3 Neutrophils % 48.7 Nucleated Red Blood Cells # 0.0 Nucleated Red Blood Cells % 0.0 Phosphorus Level 3.4 Platelet Count 231 Potassium Level 4.2 Prothrombin Time 13.7 Prothrombin Time Ratio 1.1 Red Blood Count 3.88 L Red Cell Distribution Width 13.4 Sodium Level 143 Total Bilirubin 0.3 Total Protein 6.6 Triglycerides Level 62 White Blood Count 4.7 #L Medications Medications Current Medications Sodium Chloride (NS) 1,000 ml @ 100 mls/hr Q10H IV Last administered on t 06:42; Admin Dose 100 MLS/HR; Start 06/30/16 at 15:59 Ondansetron HCl (Zofran Inj) 4 mg Q6H PRN IV NAUSEA AND/OR VOMITING; Start at 16:00 Acetaminophen (Tylenol Tab) 650 mg Q6H PRN PO PAIN LEVEL 1-3 OR FEVER; Start at 16:00 Acetaminophen (Tylenol Supp) 650 mg Q6H PRN [place] PAIN LEVEL 1-3 OR FEVER; Start 06/30/16 at 16:00 Ibuprofen (Motrin) 600 mg Q6H PRN PO PAIN LEVEL 1-3; Start 06/30/16 at 16:00 Famotidine (Pepcid) 20 mg Q12 PO Last administered on 07/01/16 08:29; Admin Dose 20 MG; Start 06/30/16 at 21:00 Enoxaparin Sodium (Lovenox) 40 mg DAILY SC Last administered on 07/01/16 08:33 ; Admin Dose 40 MG; Start 06/30/16 at 17:00 Hydromorphone HCl (Dilaudid) 0.5 mg Q8 PRN IV SEVERE PAIN LEVEL 7-10 Last administered on 07/01/16 08:29; Admin Dose 0.5 MG; Start 06/30/16 at 22:00 Tramadol HCl (Ultram) 50 mg Q6H PRN PO pain management; Start 06/30/16 at 21:00 Metoclopramide HCl (Reglan) 10 mg Q6H IV ; Start 07/01/16 at 11:30; Status UNAUSTYN GOMEZ MD Jul 01, 2016 11:23
--- NOTE | 2016-07-01 11:25 | PN ---
Date/Time of Note Date/Time of Note DATE: 07/01/16 TIME: 11:19 Assessment/Plan VTE Prophylaxis VTE Prophylaxis Intervention: LMWH Lines/Catheters IV Catheter Type (from [facility]): Saline Lock Urinary Cath still in place: No Assessment/Plan Chief Complaint/Hosp Course S - no vomiting. no fever. loose bm's. no gi bleed/ dyspnea. Epigastric/lt flank pain -sharp/increases w movement. Refused contrast/imaging study. O - vss PE No pallor icterus adenopathy Reg CTAB Bs present, mod tender. ND. No r/r. Probable voluntary guarding. No edema A/P: 1. Abd pain, ukn etio, possible gastritis. Outpt capsule endoscopy/GI ultrasound. IBD workup. Probable pain-seeking behavior. 2. Probable chr alcoholic pancreatitis. No recent pseudocyst or pseudoaneurysm , or intra-abd fluid collection. States GI procedure was in 03/[address] [facility]; visited [facility] 04/29. Awaiting records. 3. Acute on chronic gout. 4. Nonadherence 5. Cholelithiasis. 6. Fatty liver disease. 7. Adjustment disorder. 8. Anemia. 9. Prediabetes. 10. Past alcohol/opiate dependence? Problems: Exam/Review of Systems Vital Signs Vitals Vital Signs Date Time Temp Pulse Resp B/P Pulse Ox O2 Delivery O2 Flow Rate FiO2 07/01/16 09:33 91 146/71 07/01/16 07:30 98.5 18 97 06/30/16 13:30 Room Air Intake and Output 06/30/16 06/30/16 07/01/16 15:00 23:00 07:00 Intake Total 240 ml 1100 ml Balance 240 ml 1100 ml Results Result Diagram: 07/01/16 0449 07/01/16 0449 Results 24 hrs Laboratory Tests Test 07/01/16 04:49 Alanine Aminotransferase (ALT/SGPT) 35 Albumin 3.8 Albumin/Globulin Ratio 1.35 Alkaline Phosphatase 85 Anion Gap 19 H Aspartate Amino Transf (AST/SGOT) 25 Basophils # 0.0 Basophils % 0.2 Blood Urea Nitrogen 6 L Calcium Level 9.5 Carbon Dioxide Level 27 Chloride Level 101 Cholesterol Level < 50 L Cholesterol/HDL Ratio Creatinine 0.61 Direct Bilirubin 0.00 Eosinophils # 0.1 Eosinophils % 1.4 Globulin 2.80 Glucose Level 82 HDL Cholesterol 15 L Hematocrit 34.7 L Hemoglobin 12.1 L INR International Normalized Ratio 1.05 Indirect Bilirubin 0.3 LDL Cholesterol, Calculated Lactic Acid Level 0.9 Lipase 62 Lymphocytes # 1.9 Lymphocytes % 40.3 Magnesium Level 1.7 Mean Corpuscular Hemoglobin 31.1 Mean Corpuscular Hemoglobin Concent 34.9 Mean Corpuscular Volume 89.3 Mean Platelet Volume 8.5 Monocytes # 0.4 Monocytes % 9.4 Neutrophils # 2.3 Neutrophils % 48.7 Nucleated Red Blood Cells # 0.0 Nucleated Red Blood Cells % 0.0 Phosphorus Level 3.4 Platelet Count 231 Potassium Level 4.2 Prothrombin Time 13.7 Prothrombin Time Ratio 1.1 Red Blood Count 3.88 L Red Cell Distribution Width 13.4 Sodium Level 143 Total Bilirubin 0.3 Total Protein 6.6 Triglycerides Level 62 White Blood Count 4.7 #L Medications Medications Current Medications Sodium Chloride (NS) 1,000 ml @ 100 mls/hr Q10H IV Last administered on 06:42; Admin Dose 100 MLS/HR; Start 06/30/16 at 15:59 Ondansetron HCl (Zofran Inj) 4 mg Q6H PRN IV NAUSEA AND/OR VOMITING; Start at 16:00 Acetaminophen (Tylenol Tab) 650 mg Q6H PRN PO PAIN LEVEL 1-3 OR FEVER; Start at 16:00 Acetaminophen (Tylenol Supp) 650 mg Q6H PRN [place] PAIN LEVEL 1-3 OR FEVER; Start 06/30/16 at 16:00 Ibuprofen (Motrin) 600 mg Q6H PRN PO PAIN LEVEL 1-3; Start 06/30/16 at 16:00 Famotidine (Pepcid) 20 mg Q12 PO Last administered on 07/01/16 08:29; Admin Dose 20 MG; Start 06/30/16 at 21:00 Enoxaparin Sodium (Lovenox) 40 mg DAILY SC Last administered on 07/01/16 08:33 ; Admin Dose 40 MG; Start 06/30/16 at 17:00 Hydromorphone HCl (Dilaudid) 0.5 mg Q8 PRN IV SEVERE PAIN LEVEL 7-10 Last administered on 07/01/16 08:29; Admin Dose 0.5 MG; Start 06/30/16 at 22:00 Tramadol HCl (Ultram) 50 mg Q6H PRN PO pain management; Start 06/30/16 at 21:00 Metoclopramide HCl (Reglan) 10 mg Q6H IV ; Start 07/01/16 at 11:30; Status EVENS VILLAVICENCIO MD Jul 01, 2016 11:25
[2016-07-01] MEDS ORDERED: BARIUM SULF 2% 450 ML BTL (BERRY SMOOTHIE) PO ONE (12:00)
[2016-07-01] MEDS: METOCLOPRAMIDE 10 MG INJ IV SCH ×2 (12:06→17:08)
[2016-07-01 21:13] VITALS: BP 152/92; RESP 19
[2016-07-02] MEDS: METOCLOPRAMIDE 10 MG INJ IV SCH ×5 (00:38→23:30)
[2016-07-02] MEDS: SOD CHLORIDE 0.9% 1,000 ML IV SCH ×3 (00:40→17:36)
[2016-07-02] MEDS: HYDROmorphONE 1 MG/ML SYG IV PRN ×3 (01:34→17:36)
[2016-07-02 07:40] VITALS: BP 160/89; RESP 16
[2016-07-02 09:00] VITALS: BP 149/105; PULSE 71
[2016-07-02] MEDS: ENOXAPARIN 40 MG/0.4 ML SYG SC SCH (09:00)
[2016-07-02] MEDS: FAMOTIDINE 20 MG TAB PO SCH ×2 (09:27→20:47)
[2016-07-02] MEDS ORDERED: BARIUM SULF 2% 450 ML BTL (BERRY SMOOTHIE) PO ONE ×2 (10:00→11:00)
--- NOTE | 2016-07-02 10:30 | PN ---
Date/Time of Note Date/Time of Note DATE: 07/02/16 TIME: 10:27 Assessment/Plan VTE Prophylaxis VTE Prophylaxis Intervention: LMWH Lines/Catheters IV [facility]ter Type (from [facility] Saline Lock Urinary Cath still in place: No Assessment/Plan Chief Complaint/Hosp Course S - 07/01 no vomiting. no fever. loose bm's. no gi bleed/ dyspnea. Epigastric/lt flank pain -sharp/increases w movement. Refused contrast/imaging study. 07/02 pain continues: Worse with eating and movement apparently. Positive loose BM and no hematochezia/melena. Refused po contrast as apparently it causes pain. Patient has completely normal vital signs and LFTs/lipase etc. Still waiting on outpatient records. States he is trying to switch insurance status but it will not be active until the first. O - vss PE No pallor/icterus Reg CTAB Bs + mod tender. ND. No r/r. Probable voluntary guarding. No edema A/P: 1. Abd pain, ukn etio, possible gastritis. Outpt capsule endoscopy/GI ultrasound. IBD workup. Probable pain-seeking behavior. Consider EGD. 2. Probable chr alcoholic pancreatitis. No recent pseudocyst, pseudoaneurysm, or intra-abd fluid collection. States GI procedure was in at [facility]; visited [facility] . Awaiting records. 3. Ac on chr gout. 4. Nonadherence 5. Cholelithiasis. 6. Fatty liver disease. 7. Adjustment disorder. 8. Anemia. 9. PreDm. 10. Past alcohol/opiate dependence? Problems: Exam/Review of Systems Vital Signs Vitals Vital Signs Date Time Temp Pulse Resp B/P Pulse Ox O2 Delivery O2 Flow Rate FiO2 07/02/16 09:00 71 149/105 07/02/16 07:40 98.5 16 98 06/30/16 13:30 Room Air Intake and Output 07/01/16 07/01/16 07/02/16 15:00 23:00 07:00 Intake Total 1140 ml 1250 ml Output Total 500 ml 900 ml Balance 640 ml 350 ml Results Result Diagram: 07/01/16 0449 07/01/16 0449 Medications Medications Current Medications Sodium Chloride (NS) 1,000 ml @ 100 mls/hr Q10H IV Last administered on 00:40; Admin Dose 100 MLS/HR; Start 06/30/16 at 15:59 Ondansetron HCl (Zofran Inj) 4 mg Q6H PRN IV NAUSEA AND/OR VOMITING; Start at 16:00 Acetaminophen (Tylenol Tab) 650 mg Q6H PRN PO PAIN LEVEL 1-3 OR FEVER; Start at 16:00 Acetaminophen (Tylenol Supp) 650 mg Q6H PRN [place] PAIN LEVEL 1-3 OR FEVER; Start 06/30/16 at 16:00 Ibuprofen (Motrin) 600 mg Q6H PRN PO PAIN LEVEL 1-3; Start 06/30/16 at 16:00 Famotidine (Pepcid) 20 mg Q12 PO Last administered on 07/02/16 09:27; Admin Dose 20 MG; Start 06/30/16 at 21:00 Enoxaparin Sodium (Lovenox) 40 mg DAILY SC Last administered on 07/01/16 08:33 ; Admin Dose 40 MG; Start 06/30/16 at 17:00 Hydromorphone HCl (Dilaudid) 0.5 mg Q8 PRN IV SEVERE PAIN LEVEL 7-10 Last administered on 07/02/16 09:28; Admin Dose 0.5 MG; Start 06/30/16 at 22:00 Tramadol HCl (Ultram) 50 mg Q6H PRN PO pain management; Start 06/30/16 at 21:00 Metoclopramide HCl (Reglan) 10 mg Q6H IV Last administered on 07/02/16 00:38; Admin Dose 10 MG; Start 07/01/16 at 11:30 EVENS BOLAND MD Jul 02, 2016 10:30
[2016-07-02] MEDS: traMADol 50 MG TAB PO PRN ×2 (12:50→21:57)
[2016-07-02] MEDS ORDERED: SOD CHLORIDE 0.9% 100 ML ONE (13:27)
[2016-07-02] MEDS ORDERED: IOHEXOL 300MG/ML 150 ML BTL ONE (13:27)
[2016-07-02 13:34] LABS: BARBITURATES Negative (NEGATIVE); BENZODIAZEPINES Positive (NEGATIVE)
[2016-07-02 13:36] LABS: OPIATES Positive (NEGATIVE)
[2016-07-02 13:37] LABS: ADD UMIC NO; URINE BILIRUBIN (Dip) NEGATIVE (NEGATIVE); URINE BLOOD (Dip) NEGATIVE (NEGATIVE); URINE COLOR LT. YELLOW (YELLOW); URINE GLUCOSE (Dip) NEGATIVE (NEGATIVE); URINE KETONES (Dip) NEGATIVE (NEGATIVE); URINE LEUKOCYTE ESTERASE (Dip) NEGATIVE (NEGATIVE); URINE NITRITE (Dip) NEGATIVE (NEGATIVE); URINE TOTAL PROTEIN (Dip) NEGATIVE (NEGATIVE); URINE UROBILINOGEN (Dip) 0.2 E.U./dL (0.1-1.0)
[2016-07-02 13:43] LABS: CANNABINOIDS Negative (NEGATIVE); COCAINE Negative (NEGATIVE)
--- NOTE | 2016-07-02 13:56 | CONS ---
Date/Time of Note Date/Time of Note DATE: 07/02/16 TIME: 13:56 Assessment/Plan Assessment/Plan Chief Complaint/Hosp Course Impression: 1. Abdominal pain 2. h/o pancreatitis 3. abdominal pain Recommendations: - MRCP and MRI of abdomen to assess for pancreatic and biliary ducts and r/o pancreatic cyst as sequlae of pancreatitis - continue Reglan every 6 hours - f/u Stool OB - EGD if clinically indicated - f/u Autoimmune markers - Case management consult for outpatient management with GI that can provide either EUS and capsule endoscopy if clinically indicated Problems: Consultation Date/Type/Reason Admit Date/Time Jun 30, 2016 at 13:37 Initial Consult Date Type of Consultation: GI 24 HR Interval Summary Free Text/Dictation epigastric pain, tolerating liquids Exam/Review of Systems Vital Signs Vitals Vital Signs Date Time Temp Pulse Resp B/P Pulse Ox O2 Delivery O2 Flow Rate FiO2 07/02/16 09:00 71 149/105 07/02/16 07:40 98.5 16 98 06/30/16 13:30 Room Air Intake and Output 07/01/16 07/01/16 07/02/16 15:00 23:00 07:00 Intake Total 1140 ml 1250 ml Output Total 500 ml 900 ml Balance 640 ml 350 ml Exam Constitutional: alert, oriented, well developed Psych: nl mood/affect, no complaints Head: atraumatic, normocephalic Eyes: EOMI, nl conjunctiva, nl lids, nl sclera ENMT: mucosa pink and moist, nl external ears & nose, nl lips & teeth, nl nasal mucosa & septum Neck: non-tender, supple Respiratory: clear to auscultation, normal air movement Cardiovascular: nl pulses, regular rate and rhythm Gastrointestinal: bowel sounds, non-tender, soft Results Result Diagram: 07/01/16 0449 07/01/16 0449 Results 24 hrs Laboratory Tests Test 07/02/16 00:30 07/02/16 12:50 Stool Occult Blood NEGATIVE Urine Amphetamines Screen Negative Urine Barbiturates Negative Urine Benzodiazepines Screen Positive Urine Bilirubin NEGATIVE Urine Cannabinoids Negative Urine Clarity CLEAR Urine Cocaine Screen Negative Urine Color LT. YELLOW Urine Glucose NEGATIVE Urine Hemoglobin NEGATIVE Urine Ketones NEGATIVE Urine Leukocyte Esterase NEGATIVE Urine Nitrite NEGATIVE Urine Opiates Screen Positive Urine Specific Wilson <=1.005 L Urine Total Protein NEGATIVE Urine Urobilinogen 0.2 E.U./dL Urine pH 6.5 Medications Medications Current Medications Sodium Chloride (NS) 1,000 ml @ 50 mls/hr Q20H IV Last administered on 00:40; Admin Dose 100 MLS/HR; Start 06/30/16 at 15:59 Ondansetron HCl (Zofran Inj) 4 mg Q6H PRN IV NAUSEA AND/OR VOMITING; Start at 16:00 Acetaminophen (Tylenol Tab) 650 mg Q6H PRN PO PAIN LEVEL 1-3 OR FEVER; Start at 16:00 Acetaminophen (Tylenol Supp) 650 mg Q6H PRN [place] PAIN LEVEL 1-3 OR FEVER; Start 06/30/16 at 16:00 Ibuprofen (Motrin) 600 mg Q6H PRN PO PAIN LEVEL 1-3; Start 06/30/16 at 16:00 Famotidine (Pepcid) 20 mg Q12 PO Last administered on 07/02/16 09:27; Admin Dose 20 MG; Start 06/30/16 at 21:00 Enoxaparin Sodium (Lovenox) 40 mg DAILY SC Last administered on 07/01/16 08:33 ; Admin Dose 40 MG; Start 06/30/16 at 17:00 Hydromorphone HCl (Dilaudid) 0.5 mg Q8 PRN IV SEVERE PAIN LEVEL 7-10 Last administered on 07/02/16 09:28; Admin Dose 0.5 MG; Start 06/30/16 at 22:00 Tramadol HCl (Ultram) 50 mg Q6H PRN PO pain management Last administered on 12:50; Admin Dose 50 MG; Start 06/30/16 at 21:00 Metoclopramide HCl (Reglan) 10 mg Q6H IV Last administered on 07/02/16 00:38; Admin Dose 10 MG; Start 07/01/16 at 11:30 KRYSTAL DE LA CRUZ MD Jul 02, 2016 13:56
[2016-07-02 14:17] LABS: MYELOPEROXIDASE ANTIBODY <1.0 AI; PROTEINASE-3 ANTIBODY <1.0 AI
[2016-07-02 15:05] LABS: ANA SCREEN NEGATIVE (NEGATIVE)
--- NOTE | 2016-07-02 17:30 | RADRPT ---
PROCEDURE: CT Abdomen and Pelvis with and without contrast. CLINICAL INDICATION: Abdominal and pelvic pain. Pancreatitis. TECHNIQUE: CT scan of the abdomen and pelvis with and without contrast was performed. The patient was scanned both before and following the uncomplicated intravenous administration of 80 cc of Omnip aque 300. Coronal and sagittal reformatted images were obtained from the axial source images. Image s were reviewed on a high-resolution PACS workstation. Total exam DLP is 1289.80 mGy-cm. CTDIvol i s 12.72 mGy. One or more of the following dose reduction techniques were used: Automated exposure c ontrol, adjustment of the mA and/or kV according to patient size, use of iterative reconstruction te chnique. COMPARISON: None. FINDINGS: The lung bases are normal. There is no pleural effusion. The liver is normal in size and attenuation. There is no focal hepatic lesion. The gallbladder and bile ducts are normal. The spleen is normal in size. There is no focal splenic lesion. Both adrenals are normal with no enlargement or mass. The pancreas is unremarkable with no mass or evidence of pancreatitis. Both kidneys demonstrate normal contrast enhancement. There is no solid renal mass, hydronephrosis , or calculus. There is a small benign cyst in the lower right kidney laterally measuring 1.4 cm in maximal dimension. The abdominal aorta is not dilated. There is calcification in the aorta consistent with atheroscler osis. There is no retroperitoneal lymphadenopathy or mass. There is no pelvic lymphadenopathy or mass. The bladder and distal ureters are normal. The periappendiceal region is unremarkable with no evidence of appendicitis. The bowel and mesentery are normal. There is no free fluid or free gas. The osseous structures are unremarkable with no fracture or lytic lesion. IMPRESSION: 1. Benign right renal cyst measuring 1.4 cm. 2. Atherosclerosis. 3. Normal pancreas. 4. Otherwise unremarkable study. RPTAT: QQ .Jaison Harvey MD, Date Time Electronically viewed and signed by .Jaison Harvey MD, on 07/02/2016 17:29 .R/
[2016-07-03] MEDS: SOD CHLORIDE 0.9% 1,000 ML IV SCH ×2 (01:26→21:36)
[2016-07-03] MEDS: HYDROmorphONE 1 MG/ML SYG IV PRN ×3 (01:36→17:29)
[2016-07-03] MEDS: METOCLOPRAMIDE 10 MG INJ IV SCH ×2 (05:30→11:30)
[2016-07-03] MEDS: traMADol 50 MG TAB PO PRN ×3 (05:55→18:46)
[2016-07-03 06:50] LABS: ALBUMIN 4.1 g/dl (3.3-4.9); POTASSIUM 3.5 mmol/L (3.5-5.1)
[2016-07-03 06:52] LABS: BILIRUBIN,INDIRECT 0.3 mg/dl (0-1.1); BILIRUBIN,TOTAL 0.3 mg/dl (0.2-1.3); CREATININE 0.59 mg/dl (0.61-1.24)
[2016-07-03 06:53] LABS: ALBUMIN/GLOBULIN RATIO 1.41; CALCIUM 9.5 mg/dl (8.4-10.2); PHOSPHORUS 4.2 mg/dl (2.5-4.9)
[2016-07-03 06:54] LABS: MAGNESIUM 1.8 mg/dl (1.7-2.5)
[2016-07-03 06:55] LABS: LACTATE DEHYDROGENASE 435 IU/L (313-618)
[2016-07-03 07:02] LABS: HEMATOCRIT 37.3 % (42.0-52.0); HEMOGLOBIN 12.9 g/dl (14.0-18.0); MEAN CORPUSCULAR HEMOGLOBIN 31.3 pg (29.0-33.0); MEAN CORPUSCULAR HGB CONC 34.6 g/dl (32.0-37.0); MEAN CORPUSCULAR VOLUME 90.4 fl (82.0-101.0); MEAN PLATELET VOLUME 9.7 fl (7.4-10.4); PLATELET COUNT 210 10^3/UL (140-440); RED BLOOD COUNT 4.13 10^6/ul (4.70-6.10); RED CELL DISTRIBUTION WIDTH 13.8 % (11.5-14.5); WHITE BLOOD COUNT 6.9 10^3/ul (4.8-10.8)
[2016-07-03 07:26] LABS: CONDITION 1; LH ANALYZER COMMENTS 1; SUSPECT 1; UNCORRECTED WBC 10.4 10^3/ul (4.8-10.8)
[2016-07-03] MEDS: ENOXAPARIN 40 MG/0.4 ML SYG SC SCH (08:12)
[2016-07-03 08:32] VITALS: BP 160/97; RESP 18
[2016-07-03 10:48] LABS: EOSINOPHILS # 0.1 10^3/ul (0.0-0.5); LYMPHOCYTES # 4.6 10^3/ul (0.8-2.9); MONOCYTE # 0.4 10^3/ul (0.3-0.9); NEUTROPHIL # 1.7 10^3/ul (1.6-7.5)
[2016-07-03] MEDS ORDERED: LORAZEPAM 2 MG INJ IV ONE (11:00)
[2016-07-03] MEDS: FAMOTIDINE 20 MG TAB PO SCH (12:35)
[2016-07-03] MEDS: LIDOCAINE/MYLANTA 40 ML BTL PO SCH ×2 (14:00→22:00)
[2016-07-03] MEDS: BELLADONNA/PHENOBARBITAL TAB PO SCH ×2 (14:00→22:00)
--- NOTE | 2016-07-03 14:18 | PN ---
Date/Time of Note Date/Time of Note DATE: 07/03/16 TIME: 14:15 Assessment/Plan VTE Prophylaxis VTE Prophylaxis Intervention: LMWH Lines/Catheters IV Catheter Type (from [facility]): Peripheral IV Urinary Cath still in place: No Assessment/Plan Chief Complaint/Hosp Course S - 07/01 no vomiting. no fever. loose bm's. no gi bleed/ dyspnea. Epigastric/lt flank pain -sharp/increases w movement. Refused contrast/imaging study. 07/02 pain continues: Worse with eating and movement apparently. Positive loose BM and no hematochezia/melena. Refused po contrast as apparently it causes pain. Patient has completely normal vital signs and LFTs/lipase etc. Still waiting on outpatient records. States he is trying to switch insurance status but it will not be active until the first. 07/03: Pain continues. Positive dry heaves present. No vomiting fever dyspnea. Positive loose BMs. States he is having problem with gout and is right knee left elbow. Now wants Solu-Medrol. I did advise him that his objective findings and imaging studies do not show any evidence of intra-abdominal issues. I did state that he would probably go home tomorrow. O - vss PE No pallor/icterus Reg CTAB Bs + mod tender. ND. No r/r. Probable voluntary guarding. No edema A/P: 1. Abd pain, ukn etio, possible gastritis. Outpt capsule endoscopy/GI ultrasound. IBD workup. Probable pain-seeking behavior. Consider EGD. stable, try gi cocktail. anticipate home 07/04, after reviewing records. 2. Probable chr alcoholic pancreatitis. No recent pseudocyst, pseudoaneurysm, or intra-abd fluid collection. States GI procedure was in at [facility]; visited [facility] . Records on chart. 3. Ac on chr gout. Start colchicine/ indomethacin. 4. Nonadherence 5. Cholelithiasis. 6. Fatty liver disease. 7. Adjustment disorder. 8. Anemia. 9. PreDm. 10. Past alcohol/opiate dependence? Outpatient pain management referral. Problems: Exam/Review of Systems Vital Signs Vitals Vital Signs Date Time Temp Pulse Resp B/P Pulse Ox O2 Delivery O2 Flow Rate FiO2 07/03/16 08:32 98.5 76 18 160/97 97 06/30/16 13:30 Room Air Intake and Output 07/02/16 07/02/16 07/03/16 15:00 23:00 07:00 Intake Total 300 ml 920 ml 320 ml Output Total 1350 ml 750 ml Balance 300 ml -430 ml -430 ml Results Result Diagram: 07/03/16 0540 07/03/16 0540 Results 24 hrs Laboratory Tests Test 07/03/16 05:40 Alanine Aminotransferase (ALT/SGPT) 24 Albumin 4.1 Albumin/Globulin Ratio 1.41 Alkaline Phosphatase 86 Anion Gap 19 H Aspartate Amino Transf (AST/SGOT) 20 Band Neutrophils % 1.0 Basophils # Basophils % Blood Urea Nitrogen 4 L Calcium Level 9.5 Carbon Dioxide Level 26 Chloride Level 105 Creatinine 0.59 L Differential Comment MANUAL DIFF Direct Bilirubin 0.00 Eosinophils # 0.1 Eosinophils % 2.0 Globulin 2.90 Glucose Level 87 Hematocrit 37.3 L Hemoglobin 12.9 L Indirect Bilirubin 0.3 Lactate Dehydrogenase 435 Lipase 57 Lymphocytes # 4.6 H Lymphocytes % 67.0 H Magnesium Level 1.8 Mean Corpuscular Hemoglobin 31.3 Mean Corpuscular Hemoglobin Concent 34.6 Mean Corpuscular Volume 90.4 Mean Platelet Volume 9.7 Monocytes # 0.4 Monocytes % 6.0 Neutrophils # 1.7 Neutrophils % 24.0 L Nucleated Red Blood Cells # Nucleated Red Blood Cells % Phosphorus Level 4.2 Platelet Count 210 Potassium Level 3.5 Red Blood Count 4.13 L Red Cell Distribution Width 13.8 Sodium Level 146 H Total Bilirubin 0.3 Total Protein 7.0 White Blood Count 6.9 # Medications Medications Current Medications Sodium Chloride (NS) 1,000 ml @ 50 mls/hr Q20H IV Last administered on t 17:36; Admin Dose 50 MLS/HR; Start 06/30/16 at 15:59 Ondansetron HCl (Zofran Inj) 4 mg Q6H PRN IV NAUSEA AND/OR VOMITING; Start at 16:00 Acetaminophen (Tylenol Tab) 650 mg Q6H PRN PO PAIN LEVEL 1-3 OR FEVER; Start at 16:00 Acetaminophen (Tylenol Supp) 650 mg Q6H PRN [place] PAIN LEVEL 1-3 OR FEVER; Start 06/30/16 at 16:00 Ibuprofen (Motrin) 600 mg Q6H PRN PO PAIN LEVEL 1-3; Start 06/30/16 at 16:00 Famotidine (Pepcid) 20 mg Q12 PO Last administered on 07/03/16 12:35; Admin Dose 20 MG; Start 06/30/16 at 21:00 Enoxaparin Sodium (Lovenox) 40 mg DAILY SC Last administered on 07/03/16 08:12 ; Admin Dose 40 MG; Start 06/30/16 at 17:00 Hydromorphone HCl (Dilaudid) 0.5 mg Q8 PRN IV SEVERE PAIN LEVEL 7-10 Last administered on 07/03/16 09:30; Admin Dose 0.5 MG; Start 06/30/16 at 22:00 Tramadol HCl (Ultram) 50 mg Q6H PRN PO pain management Last administered on 12:36; Admin Dose 50 MG; Start 06/30/16 at 21:00 Metoclopramide HCl (Reglan) 10 mg Q6H IV Last administered on 07/02/16 00:38; Admin Dose 10 MG; Start 07/01/16 at 11:30 Miscellaneous Medication (Gi Cocktail (2)) 40 ml Q8 PO ; Start 07/03/16 at 14:00 Belladonna/ Phenobarbital () 1 tab Q8 PO ; Start 07/03/16 at 14:00 EVENS BOLAND MD Jul 03, 2016 14:18
[2016-07-03] MEDS ORDERED: COLCHICINE 0.6 MG TAB PO ONE ×2 (14:30→20:30)
--- NOTE | 2016-07-03 14:46 | CONS ---
Date/Time of Note Date/Time of Note DATE: 07/03/16 TIME: 14:42 Assessment/Plan Assessment/Plan Chief Complaint/Hosp Course Impression: 1. Abdominal pain of unclear etiology, CT and labs unremarkable. 2. h/o pancreatitis: normal amylase lipase this tiem 3. Anemia: stool ob negative. Recommendations: - f/u MRCP and MRI of abdomen to assess for pancreatic and biliary ducts - continue Reglan every 6 hours - EGD if patient continues to have pain and normal MRCP and MRI of abdomen - Case management consult for outpatient management with GI that can provide either EUS and capsule endoscopy if clinically indicated Problems: Consultation Date/Type/Reason Admit Date/Time Jun 30, 2016 at 13:37 Type of Consultation: GI 24 HR Interval Summary Free Text/Dictation still complaining of persistent epigastric pain, has nausea but no vomiting. Exam/Review of Systems Vital Signs Vitals Vital Signs Date Time Temp Pulse Resp B/P Pulse Ox O2 Delivery O2 Flow Rate FiO2 07/03/16 08:32 98.5 76 18 160/97 97 06/30/16 13:30 Room Air Intake and Output 07/02/16 07/02/16 07/03/16 15:00 23:00 07:00 Intake Total 300 ml 920 ml 320 ml Output Total 1350 ml 750 ml Balance 300 ml -430 ml -430 ml Exam Constitutional: alert, oriented, well developed Psych: anxiety, nl mood/affect, no complaints Head: atraumatic, normocephalic Eyes: EOMI, nl conjunctiva, nl lids, nl sclera ENMT: mucosa pink and moist, nl external ears & nose, nl lips & teeth, nl nasal mucosa & septum Neck: non-tender, supple Respiratory: clear to auscultation, normal air movement Cardiovascular: nl pulses, regular rate and rhythm Gastrointestinal: bowel sounds, non-tender, soft Results Result Diagram: 07/03/16 0540 07/03/16 0540 Results 24 hrs Laboratory Tests Test 07/03/16 05:40 Alanine Aminotransferase (ALT/SGPT) 24 Albumin 4.1 Albumin/Globulin Ratio 1.41 Alkaline Phosphatase 86 Anion Gap 19 H Aspartate Amino Transf (AST/SGOT) 20 Band Neutrophils % 1.0 Basophils # Basophils % Blood Urea Nitrogen 4 L Calcium Level 9.5 Carbon Dioxide Level 26 Chloride Level 105 Creatinine 0.59 L Differential Comment MANUAL DIFF Direct Bilirubin 0.00 Eosinophils # 0.1 Eosinophils % 2.0 Globulin 2.90 Glucose Level 87 Hematocrit 37.3 L Hemoglobin 12.9 L Indirect Bilirubin 0.3 Lactate Dehydrogenase 435 Lipase 57 Lymphocytes # 4.6 H Lymphocytes % 67.0 H Magnesium Level 1.8 Mean Corpuscular Hemoglobin 31.3 Mean Corpuscular Hemoglobin Concent 34.6 Mean Corpuscular Volume 90.4 Mean Platelet Volume 9.7 Monocytes # 0.4 Monocytes % 6.0 Neutrophils # 1.7 Neutrophils % 24.0 L Nucleated Red Blood Cells # Nucleated Red Blood Cells % Phosphorus Level 4.2 Platelet Count 210 Potassium Level 3.5 Red Blood Count 4.13 L Red Cell Distribution Width 13.8 Sodium Level 146 H Total Bilirubin 0.3 Total Protein 7.0 White Blood Count 6.9 # Medications Medications Current Medications Sodium Chloride (NS) 1,000 ml @ 50 mls/hr Q20H IV Last administered on 17:36; Admin Dose 50 MLS/HR; Start 06/30/16 at 15:59 Ondansetron HCl (Zofran Inj) 4 mg Q6H PRN IV NAUSEA AND/OR VOMITING; Start at 16:00 Acetaminophen (Tylenol Tab) 650 mg Q6H PRN PO PAIN LEVEL 1-3 OR FEVER; Start at 16:00 Acetaminophen (Tylenol Supp) 650 mg Q6H PRN [place] PAIN LEVEL 1-3 OR FEVER; Start 06/30/16 at 16:00 Ibuprofen (Motrin) 600 mg Q6H PRN PO PAIN LEVEL 1-3; Start 06/30/16 at 16:00 Famotidine (Pepcid) 20 mg Q12 PO Last administered on 07/03/16 12:35; Admin Dose 20 MG; Start 06/30/16 at 21:00 Enoxaparin Sodium (Lovenox) 40 mg DAILY SC Last administered on 07/03/16 08:12 ; Admin Dose 40 MG; Start 06/30/16 at 17:00 Hydromorphone HCl (Dilaudid) 0.5 mg Q8 PRN IV SEVERE PAIN LEVEL 7-10 Last administered on 07/03/16 09:30; Admin Dose 0.5 MG; Start 06/30/16 at 22:00 Tramadol HCl (Ultram) 50 mg Q6H PRN PO pain management Last administered on 12:36; Admin Dose 50 MG; Start 06/30/16 at 21:00 Metoclopramide HCl (Reglan) 10 mg Q6H IV Last administered on 07/02/16 00:38; Admin Dose 10 MG; Start 07/01/16 at 11:30 Miscellaneous Medication (Gi Cocktail (2)) 40 ml Q8 PO ; Start 07/03/16 at 14:00 Belladonna/ Phenobarbital () 1 tab Q8 PO ; Start 07/03/16 at 14:00 Colchicine (Colchicine) 1.2 mg ONCE ONCE PO ; Start 07/03/16 at 14:30; Stop at 14:31; Status UNV Colchicine (Colchicine) 0.6 mg ONCE ONCE PO ; Start 07/03/16 at 20:30; Stop at 20:31; Status UNV Colchicine (Colchicine) 0.6 mg BID PO ; Start 07/04/16 at 09:00; Status UNV KRYSTAL DE LA RCUZ MD Jul 03, 2016 14:46
[2016-07-03] MEDS ORDERED: METHYLPREDNISOLONE 40 MG INJ IV ONE (15:30)
[2016-07-03] MEDS ORDERED: METOCLOPRAMIDE 10 MG INJ IV PRN (17:00)
--- NOTE | 2016-07-03 17:45 | RADRPT ---
PROCEDURE: MRA of the abdomen without and with contrast CLINICAL INDICATION: Abdominal pain. Evaluate for pseudoaneurysm. TECHNIQUE: An MRA of the abdomen was performed on a GE 1.5 [employer] scanner utilizing the following s equences: Coronal single shot FSE T2-weighted, axial T1-weighted FSPGR and out of phase, and postco ntrast axial and coronal T1-weighted with multi phase imaging on the axial postcontrast study. Arter ial and venous phase frontal MRA images were obtained. 3-D images were also reviewed. 20 cc of Magn evist were given intravenously without complication. COMPARISON: MRCP 06/25/[address] abdomen and pelvis 07/02/2016. FINDINGS: The liver is normal in size and homogeneous in signal intensity. There is normal signal intensity w ithin the liver. No liver mass lesion or intrahepatic biliary dilatation is seen. The spleen is no rmal in size and homogeneous in signal intensity. The stomach is partially collapsed but grossly un remarkable. There is approximately 2 cm portion of the distal pancreatic tail which demonstrates loss of normal nodular contour of the pancreas; however this area demonstrates no abnormal intensity with similar e nhancement pattern of the pancreas. No pancreatic lesion is seen. The adrenal glands and kidneys a re symmetrically normal. There is approximately 1 cm cortical cyst in the right kidney. The aorta i s of normal caliber. There is no retroperitoneal lymphadenopathy. The bowel and mesentery, as visu alized, are all unremarkable. Splenic vein, SMV, portal veins are all patent. Mesenteric arteries , two right-sided and single le ft renal arteries are patent with no significant ostial stenosis. Splenic artery is normal in calib er with no pseudoaneurysm. IMPRESSION: Vascular: 1. Patent mesenteric arteries with no pseudoaneurysm. 2. Patent portal venous system. Abdomen: 1. Subtle parenchymal distortion of the distal pancreatic tail with loss of normal nodular contour; however this area also demonstrate normal homogeneous contrast enhancement as the rest of the pancr eatic parenchyma. No peripancreatic inflammatory changes. (Please see fry images ) Splenic vein an d splenic artery remain patent at this location. 2. No biliary ductal dilatation. 3. Small simple cyst in the right kidney. RPTAT: EE .Harun Ozer, MD, MD Date Time Electronically viewed and signed by .Winston Vale MD, MD on 07/03/2016 17:44 .O/
[2016-07-03] MEDS: PANTOPRAZOLE (EC) 40 MG TAB PO SCH (18:04)
[2016-07-03 20:18] VITALS: BP 137/86; RESP 18
[2016-07-04] MEDS: HYDROmorphONE 1 MG/ML SYG IV PRN ×3 (01:34→17:55)
[2016-07-04] MEDS: traMADol 50 MG TAB PO PRN ×2 (02:38→08:37)
[2016-07-04] MEDS: LIDOCAINE/MYLANTA 40 ML BTL PO SCH ×3 (05:40→22:00)
[2016-07-04] MEDS: PANTOPRAZOLE (EC) 40 MG TAB PO SCH ×2 (05:40→17:11)
[2016-07-04] MEDS: BELLADONNA/PHENOBARBITAL TAB PO SCH ×3 (05:41→22:00)
[2016-07-04 07:34] VITALS: BP 150/80; RESP 18
--- NOTE | 2016-07-04 07:48 | CONS ---
Date/Time of Note Date/Time of Note DATE: 07/04/16 TIME: 07:48 Assessment/Plan Assessment/Plan Chief Complaint/Hosp Course Impression: 1. Abdominal pain of unclear etiology, CT and labs unremarkable. MRI relativly normal. 2. h/o pancreatitis: normal amylase lipase this tiem 3. Anemia: stool ob negative. Recommendations: - continue Reglan every 6 hours - consider EGD per Dr. Borja but low likelihood to find etiology of abdominal pain - patient likely will need capsule endoscopy to evaluate sb or EUS but not available at [facility] Case management consult for outpatient management with GI that can provide either EUS and capsule endoscopy if clinically indicated Problems: Consultation Date/Type/Reason Admit Date/Time Jun 30, 2016 at 13:37 Type of Consultation: GI 24 HR Interval Summary Free Text/Dictation complains of abdominal pain, no nausea or vomiting, no fever or chills Exam/Review of Systems Vital Signs Vitals Vital Signs Date Time Temp Pulse Resp B/P Pulse Ox O2 Delivery O2 Flow Rate FiO2 07/03/16 20:18 98.6 93 18 137/86 97 06/30/16 13:30 Room Air Intake and Output 07/03/16 07/03/16 07/04/16 15:00 23:00 07:00 Intake Total 1600 ml 700 ml Output Total 1800 ml Balance 1600 ml -1100 ml Exam Head: atraumatic, normocephalic Eyes: EOMI, nl conjunctiva, nl lids, nl sclera ENMT: mucosa pink and moist, nl external ears & nose, nl lips & teeth, nl nasal mucosa & septum Neck: non-tender, supple Respiratory: clear to auscultation, normal air movement Cardiovascular: nl pulses, regular rate and rhythm Gastrointestinal: bowel sounds, soft, tender (diffusely, no r/g) Results Result Diagram: 07/03/1640 07/03/16 0540 Medications Medications Current Medications Sodium Chloride (NS) 1,000 ml @ 50 mls/hr Q20H IV Last administered on t 21:36; Admin Dose 50 MLS/HR; Start 06/30/16 at 15:59 Ondansetron HCl (Zofran Inj) 4 mg Q6H PRN IV NAUSEA AND/OR VOMITING; Start at 16:00 Acetaminophen (Tylenol Tab) 650 mg Q6H PRN PO PAIN LEVEL 1-3 OR FEVER; Start at 16:00 Acetaminophen (Tylenol Supp) 650 mg Q6H PRN [place] PAIN LEVEL 1-3 OR FEVER; Start 06/30/16 at 16:00 Ibuprofen (Motrin) 600 mg Q6H PRN PO PAIN LEVEL 1-3; Start 06/30/16 at 16:00 Enoxaparin Sodium (Lovenox) 40 mg DAILY SC Last administered on 07/03/16 08:12 ; Admin Dose 40 MG; Start 06/30/16 at 17:00 Hydromorphone HCl (Dilaudid) 0.5 mg Q8 PRN IV SEVERE PAIN LEVEL 7-10 Last administered on 07/04/16 01:34; Admin Dose 0.5 MG; Start 06/30/16 at 22:00 Tramadol HCl (Ultram) 50 mg Q6H PRN PO pain management Last administered on 02:38; Admin Dose 50 MG; Start 06/30/16 at 21:00 Miscellaneous Medication (Gi Cocktail (2)) 40 ml Q8 PO ; Start 07/03/16 at 14:00 Belladonna/ Phenobarbital () 1 tab Q8 PO ; Start 07/03/16 at 14:00 Colchicine (Colchicine) 0.6 mg BID PO ; Start 07/04/16 at 09:00 Pantoprazole (Protonix Tab) 40 mg BID@06,18 PO Last administered on 07/04/16 05:40; Admin Dose 40 MG; Start 07/03/16 at 18:00 Metoclopramide HCl (Reglan) 10 mg Q6H PRN IV NAUSEA; Start 07/03/16 at 17:00 KRYSTAL DE LA CRUZ MD Jul 04, 2016 07:48
[2016-07-04] MEDS: COLCHICINE 0.6 MG TAB PO SCH ×2 (08:36→22:22)
[2016-07-04] MEDS: ENOXAPARIN 40 MG/0.4 ML SYG SC SCH (08:38)
--- NOTE | 2016-07-04 12:31 | PN ---
Date/Time of Note Date/Time of Note DATE: 07/04/16 TIME: 12:27 Assessment/Plan VTE Prophylaxis VTE Prophylaxis Intervention: LMWH Lines/Catheters IV [facility]ter [facility] (from [facility] Saline Lock Urinary Cath still in place: No Assessment/Plan Assessment/Plan 1. Abdominal pain, acute on chronic, unclear etiology, follow up with GI 2. 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 Gout, stable 4. DVT prophylaxis: lovenox Subjective 24 Hr Interval Summary Free Text/Dictation abdominal pain, no nausea or vomiting, no fever or chills Exam/Review of Systems Vital Signs Vitals Vital Signs Date Time Temp Pulse Resp B/P Pulse Ox O2 Delivery O2 Flow Rate FiO2 07/04/16 07:34 98.7 73 18 150/80 96 06/30/16 13:30 Room Air Intake and Output 07/03/16 07/03/16 07/04/16 15:00 23:00 07:00 Intake Total 1600 ml 700 ml Output Total 1800 ml Balance 1600 ml -1100 ml Exam Constitutional: alert, oriented, well developed Psych: nl mood/affect, no complaints Head: atraumatic, normocephalic Eyes: EOMI, PERRL, nl conjunctiva, nl lids ENMT: nl external ears & nose, nl lips & teeth, nl nasal mucosa & septum Neck: non-tender, supple Respiratory: clear to auscultation, normal air movement, No congested cough, No crackles/rales, No diminished breath sounds, No intercostal retraction, No labored breathing, No other, No respirations, No tactile fremitus, No wheezing Cardiovascular: nl pulses, regular rate and rhythm, No S3, No S4, No bruits, No diastolic murmur, No edema, No gallop, No irregular rhythm, No jugular venous distention (JVD), No murmurs/extra sounds, No other, No rub, No systolic murmur Gastrointestinal: nl liver, spleen, tender (epigastric), No ascites, No bowel sounds, No distended, No firm, No hepatomegaly, No mass , No other, No rebound or guarding, No soft, No splenomegaly, No surgical scars Musculoskeletal: nl extremities to inspection Extremities: cyanosis, normal pulses 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: 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 LAW INSTRUCTOR II-XII intact, nl mental status, nl speech, nl strength Skin: nl turgor, rash or lesions Lymph: nl lymph nodes Results Result Diagram: 07/03/16 0540 07/03/16 0540 Medications Medications Current Medications Sodium Chloride (NS) 1,000 ml @ 50 mls/hr Q20H IV Last administered on 21:36; Admin Dose 50 MLS/HR; Start 06/30/16 at 15:59 Ondansetron HCl (Zofran Inj) 4 mg Q6H PRN IV NAUSEA AND/OR VOMITING; Start at 16:00 Acetaminophen (Tylenol Tab) 650 mg Q6H PRN PO PAIN LEVEL 1-3 OR FEVER; Start at 16:00 Acetaminophen (Tylenol Supp) 650 mg Q6H PRN [place] PAIN LEVEL 1-3 OR FEVER; Start 06/30/16 at 16:00 Ibuprofen (Motrin) 600 mg Q6H PRN PO PAIN LEVEL 1-3; Start 06/30/16 at 16:00 Enoxaparin Sodium (Lovenox) 40 mg DAILY SC Last administered on 07/04/16 08:38 ; Admin Dose 40 MG; Start 06/30/16 at 17:00 Hydromorphone HCl (Dilaudid) 0.5 mg Q8 PRN IV SEVERE PAIN LEVEL 7-10 Last administered on 07/04/16 09:42; Admin Dose 0.5 MG; Start 06/30/16 at 22:00 Tramadol HCl (Ultram) 50 mg Q6H PRN PO pain management Last administered on 08:37; Admin Dose 50 MG; Start 06/30/16 at 21:00 Miscellaneous Medication (Gi Cocktail (2)) 40 ml Q8 PO ; Start 07/03/16 at 14:00 Belladonna/ Phenobarbital () 1 tab Q8 PO ; Start 07/03/16 at 14:00 Colchicine (Colchicine) 0.6 mg BID PO Last administered on 07/04/16 08:36; Admin Dose 0.6 MG; Start 07/04/16 at 09:00 Pantoprazole (Protonix Tab) 40 mg BID@06,18 PO Last administered on 07/04/16 05:40; Admin Dose 40 MG; Start 07/03/16 at 18:00 Metoclopramide HCl (Reglan) 10 mg Q6H PRN IV NAUSEA; Start 07/03/16 at 17:00 JOE BRICENO MD Jul 04, 2016 12:31
[2016-07-04] MEDS: SOD CHLORIDE 0.9% 1,000 ML IV SCH (17:11)
[2016-07-04 20:07] VITALS: BP 135/94; RESP 18
[2016-07-05] VITALS (10 sets, daily range): BP systolic 130–160; BP diastolic 79–100; PULSE 65–81; RESP 12–21
[2016-07-05] MEDS: HYDROmorphONE 1 MG/ML SYG IV PRN ×3 (01:59→19:42)
[2016-07-05] MEDS: traMADol 50 MG TAB PO PRN ×2 (03:10→20:54)
[2016-07-05] MEDS: PANTOPRAZOLE (EC) 40 MG TAB PO SCH ×2 (05:58→18:00)
[2016-07-05] MEDS: BELLADONNA/PHENOBARBITAL TAB PO SCH ×3 (05:59→22:00)
[2016-07-05] MEDS: LIDOCAINE/MYLANTA 40 ML BTL PO SCH ×3 (05:59→22:00)
[2016-07-05] MEDS: ENOXAPARIN 40 MG/0.4 ML SYG SC SCH (08:26)
[2016-07-05] MEDS: COLCHICINE 0.6 MG TAB PO SCH ×2 (08:34→20:54)
[2016-07-05] MEDS: SOD CHLORIDE 0.9% 1,000 ML IV SCH (13:30)
--- NOTE | 2016-07-05 16:20 | PN ---
Date/Time of Note Date/Time of Note DATE: 07/05/16 TIME: 16:18 Assessment/Plan VTE Prophylaxis VTE Prophylaxis Intervention: LMWH Lines/Catheters IV Catheter Type (from Nrs): Peripheral IV Urinary Cath still in place: No Assessment/Plan Assessment/Plan 1. Abdominal pain, acute on chronic, unclear etiology, EGD today 2. 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 Gout, stable 4. DVT prophylaxis: lovenox Subjective 24 Hr Interval Summary Free Text/Dictation abdominal pain Exam/Review of Systems Vital Signs Vitals Vital Signs Date Time Temp Pulse Resp B/P Pulse Ox O2 Delivery O2 Flow Rate FiO2 07/05/16 12:31 66 138/80 07/05/16 08:00 98.3 16 96 Room Air Intake and Output 07/04/16 07/04/16 07/05/16 15:00 23:00 07:00 Intake Total 500 ml 1040 ml Output Total 900 ml Balance 500 ml 140 ml Exam Constitutional: alert, oriented, well developed Psych: nl mood/affect, no complaints Head: atraumatic, normocephalic Eyes: EOMI, PERRL, nl conjunctiva, nl lids ENMT: nl external ears & nose, nl lips & teeth, nl nasal mucosa & septum Neck: non-tender, supple Respiratory: clear to auscultation, normal air movement, No congested cough, No crackles/rales, No diminished breath sounds, No intercostal retraction, No labored breathing, No other, No respirations, No tactile fremitus, No wheezing Cardiovascular: nl pulses, regular rate and rhythm, No S3, No S4, No bruits, No diastolic murmur, No edema, No gallop, No irregular rhythm, No jugular venous distention (JVD), No murmurs/extra sounds, No other, No rub, No systolic murmur Gastrointestinal: bowel sounds, nl liver, spleen, soft, No ascites, No distended, No firm, No hepatomegaly, No mass, No rebound or guarding, No splenomegaly, No surgical scars Musculoskeletal: nl extremities to inspection Extremities: normal pulses, No calf tenderness, No clubbing, No cyanosis, No edema, No other, No palpable cord, No pitting pedal edema, No tenderness 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: 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 intact, nl mental status, nl speech, nl strength Skin: nl turgor, rash or lesions Lymph: nl lymph nodes Results Result Diagram: 07/03/1653907/03/16 0540 Medications Medications Current Medications Sodium Chloride (NS) 1,000 ml @ 50 mls/hr Q20H IV Last administered on 13:30; Admin Dose 50 MLS/HR; Start 06/30/16 at 15:59 Ondansetron HCl (Zofran Inj) 4 mg Q6H PRN IV NAUSEA AND/OR VOMITING; Start at 16:00 Acetaminophen (Tylenol Tab) 650 mg Q6H PRN PO PAIN LEVEL 1-3 OR FEVER; Start at 16:00 Acetaminophen (Tylenol Supp) 650 mg Q6H PRN [place] PAIN LEVEL 1-3 OR FEVER; Start 06/30/16 at 16:00 Ibuprofen (Motrin) 600 mg Q6H PRN PO PAIN LEVEL 1-3; Start 06/30/16 at 16:00 Enoxaparin Sodium (Lovenox) 40 mg DAILY SC Last administered on 07/05/16 08:26 ; Admin Dose 40 MG; Start 06/30/16 at 17:00 Hydromorphone HCl (Dilaudid) 0.5 mg Q8 PRN IV SEVERE PAIN LEVEL 7-10 Last administered on 07/05/16 09:53; Admin Dose 0.5 MG; Start 06/30/16 at 22:00 Tramadol HCl (Ultram) 50 mg Q6H PRN PO pain management Last administered on 03:10; Admin Dose 50 MG; Start 06/30/16 at 21:00 Miscellaneous Medication (Gi Cocktail (2)) 40 ml Q8 PO ; Start 07/03/16 at 14:00 Belladonna/ Phenobarbital () 1 tab Q8 PO ; Start 07/03/16 at 14:00 Colchicine (Colchicine) 0.6 mg BID PO Last administered on 07/05/16 08:34; Admin Dose 0.6 MG; Start 07/04/16 at 09:00 Pantoprazole (Protonix Tab) 40 mg BID@06,18 PO Last administered on 07/05/16 05:58; Admin Dose 40 MG; Start 07/03/16 at 18:00 Metoclopramide HCl (Reglan) 10 mg Q6H PRN IV NAUSEA; Start 07/03/16 at 17:00 JOE BRICENO MD Jul 05, 2016 16:20
[2016-07-05] MEDS ORDERED: FENTAnyl 50 MCG/ML VIAL IV PRN (17:00)
[2016-07-05] MEDS ORDERED: PROPOFOL 20 ML ONE (17:18)
[2016-07-05] MEDS: SUCRALFATE 1 GM TAB PO SCH ×2 (20:54→23:05)
[2016-07-05] MEDS: METOCLOPRAMIDE 10 MG INJ IV SCH (23:00)
[2016-07-06] MEDS: HYDROmorphONE 1 MG/ML SYG IV PRN ×3 (03:43→20:11)
--- NOTE | 2016-07-06 03:48 | GILP ---
DATE OF PROCEDURE: PROCEDURE: Esophagogastroduodenoscopy with biopsies. SURGEON: Austyn Borja MD BRIEF HISTORY AND INDICATIONS: The patient with persistent abdominal pain. PREMEDICATION: Monitored anesthesia care by anesthesiologist. INSTRUMENT USED: TECHNIQUE: After informed consent, with the patient/relatives understanding the procedure, its jada cations, potential risks and complications, including but not limited to: allergic reaction, bleedin g, perforation or infection, and after all pertinent questions were answered to the patient's satisf action, the patient/relatives signed witnessed informed consent. Following this, premedication was administered slowly IV push under careful cardiovascular and respi ratory monitoring with pulse oximetry, automatic blood pressure and compliance monitor. Once the sedative effect was achieved the patient was place in the left lateral decubitus, the panen doscope was introduced and advanced under visual control. FINDINGS: Careful examination of the upper gastrointestinal tract, both on insertion as well as wit hdrawal of the instrument disclosed the following findings: ESOPHAGUS: The distal esophagus shows mild erythema and edema of the mucosa. STOMACH: Upon entrance to the stomach, air was insufflated, the gastric cle[place] distended normally. The mucosa of the fundus, body and antrum of the stomach was carefully examined, shows erythema and edema of the mucosa of a moderate degree, bile reflux appears to be present as well. Biopsies were obtained to rule out H. pylori infection. PYLORUS: The pylorus appears patent and within normal limits, with no evidence of gastric outlet ob struction. DUODENUM: The duodenal mucosa was carefully examined in the duodenal bulb as well as the second por tion of the duodenum and appears unremarkable with no evidence of duodenitis, ulcer or neoplasm. The instrument was then withdrawn, the patient tolerated the procedure well and was transfer out of the endoscopy suite awake, and in good condition to continue recovery under observation. I IMPRESSION: 1. Moderate distal esophagitis. 2. Gastritis, moderate. Rule out H. pylori infection versus bile reflux. PLAN: The patient will be treated with PPI double dose, Reglan 10 mg q.i.d., Carafate 1 gram q.i.d. Dictated By: AUSTYN BORJA MS/SARAH BETH Conf#: [id number] DID#: [id number]
[2016-07-06] MEDS: PANTOPRAZOLE (EC) 40 MG TAB PO SCH ×2 (05:41→18:16)
[2016-07-06] MEDS: METOCLOPRAMIDE 10 MG INJ IV SCH ×3 (05:42→18:00)
[2016-07-06] MEDS: LIDOCAINE/MYLANTA 40 ML BTL PO SCH ×3 (05:42→22:00)
[2016-07-06] MEDS: BELLADONNA/PHENOBARBITAL TAB PO SCH ×3 (05:42→22:00)
[2016-07-06 07:55] VITALS: BP 131/75; RESP 14
[2016-07-06] MEDS: SUCRALFATE 1 GM TAB PO SCH ×4 (08:17→21:00)
[2016-07-06] MEDS: COLCHICINE 0.6 MG TAB PO SCH ×2 (08:17→21:22)
[2016-07-06] MEDS: ENOXAPARIN 40 MG/0.4 ML SYG SC SCH (08:19)
[2016-07-06] MEDS: SOD CHLORIDE 0.9% 1,000 ML IV SCH (08:24)
--- NOTE | 2016-07-06 14:39 | PN ---
Date/Time of Note Date/Time of Note DATE: 07/06/16 TIME: 14:37 Assessment/Plan VTE Prophylaxis VTE Prophylaxis Intervention: LMWH Lines/Catheters IV [facility]ter Type (from [facility]): Peripheral IV Urinary Cath still in place: No Assessment/Plan Assessment/Plan 1. Abdominal pain, gastritis/esophagitis on EGD, on protonix/carafate/reglan, plan to discharge tomorrow 2. 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 Gout, stable 4. DVT prophylaxis: lovenox Subjective 24 Hr Interval Summary Free Text/Dictation abdominal pain is about the same Exam/Review of Systems Vital Signs Vitals Vital Signs Date Time Temp Pulse Resp B/P Pulse Ox O2 Delivery O2 Flow Rate FiO2 07/06/16 07:55 98.2 75 14 131/75 98 07/05/16 18:40 Room Air Intake and Output 07/05/16 07/05/16 07/06/16 15:00 23:00 07:00 Intake Total 700 ml 1050 ml Output Total 600 ml 900 ml Balance 100 ml 150 ml Exam Constitutional: alert, oriented, well developed Psych: nl mood/affect, no complaints Head: atraumatic, normocephalic Eyes: EOMI, PERRL, nl conjunctiva, nl lids ENMT: nl external ears & nose, nl lips & teeth, nl nasal mucosa & septum Neck: supple Respiratory: clear to auscultation, normal air movement, No congested cough, No crackles/rales, No diminished breath sounds, No intercostal retraction, No labored breathing, No other, No respirations, No tactile fremitus, No wheezing Cardiovascular: nl pulses, regular rate and rhythm, No S3, No S4, No diastolic murmur, No edema, No gallop, No irregular rhythm, No jugular venous distention (JVD), No murmurs/extra sounds, No other, No rub, No systolic murmur Gastrointestinal: nl liver, spleen, soft, No ascites, No bowel sounds, No distended, No firm, No hepatomegaly, No mass , No other, No rebound or guarding, No splenomegaly, No surgical scars Musculoskeletal: nl extremities to inspection Extremities: normal pulses, No calf tenderness, No clubbing, No cyanosis, No edema, No other, No palpable cord, No pitting pedal edema, No tenderness 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: 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 POT TENDER II-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 intact, nl mental status, nl speech, nl strength Skin: nl turgor, rash or lesions Lymph: nl lymph nodes Results Result Diagram: 07/03/1640 07/03/16 0540 Results 24 hrs Laboratory Tests Test 07/06/16 07:28 07/06/16 07:32 Lab Scanned Report REFERENCE LAB REFERENCE LAB Medications Medications Current Medications Sodium Chloride (NS) 1,000 ml @ 50 mls/hr Q20H IV Last administered on 08:24; Admin Dose 50 MLS/HR; Start 06/30/16 at 15:59 Ondansetron HCl (Zofran Inj) 4 mg Q6H PRN IV NAUSEA AND/OR VOMITING; Start at 16:00 Acetaminophen (Tylenol Tab) 650 mg Q6H PRN PO PAIN LEVEL 1-3 OR FEVER; Start at 16:00 Acetaminophen (Tylenol Supp) 650 mg Q6H PRN [place] PAIN LEVEL 1-3 OR FEVER; Start 06/30/16 at 16:00 Enoxaparin Sodium (Lovenox) 40 mg DAILY SC Last administered on 07/06/16 08:19 ; Admin Dose 40 MG; Start 06/30/16 at 17:00 Hydromorphone HCl (Dilaudid) 0.5 mg Q8 PRN IV SEVERE PAIN LEVEL 7-10 Last administered on 07/06/16 11:40; Admin Dose 0.5 MG; Start 06/30/16 at 22:00 Tramadol HCl (Ultram) 50 mg Q6H PRN PO pain management Last administered on 20:54; Admin Dose 50 MG; Start 06/30/16 at 21:00 Miscellaneous Medication (Gi Cocktail (2)) 40 ml Q8 PO ; Start 07/03/16 at 14:00 Belladonna/ Phenobarbital () 1 tab Q8 PO ; Start 07/03/16 at 14:00 Colchicine (Colchicine) 0.6 mg BID PO Last administered on 07/06/16 08:17; Admin Dose 0.6 MG; Start 07/04/16 at 09:00 Pantoprazole (Protonix Tab) 40 mg BID@06,18 PO Last administered on 07/06/16 05:41; Admin Dose 40 MG; Start 07/03/16 at 18:00 Metoclopramide HCl (Reglan) 10 mg Q6 IV ; Start 07/05/16 at 23:00 Sucralfate (Carafate) 1 gm QID PO Last administered on 07/06/16 12:53; Admin Dose 1 GM; Start 07/05/16 at 19:00 JOE BRICENO MD Jul 06, 2016 14:39
[2016-07-06] MEDS: traMADol 50 MG TAB PO PRN (15:07)
--- NOTE | 2016-07-06 16:06 | CONS ---
Date/Time of Note Date/Time of Note DATE: 07/06/16 TIME: 16:00 Assessment/Plan Assessment/Plan Additional Assessment/Plan Impression: 1. Abdominal pain of unclear etiology * EGD 07-05-16. 1. Esophagitis 2. Gastritis, biopsies negative for dysplasia, malignancy, and H. pylori 2. h/o pancreatitis: Lipase and amylase within normal limits 3. Anemia: stool ob negative. Recommendations: - continue PPI double dose, Reglan 10 mg q.i.d., Carafate 1 gram q.i.d. every 6 hours - Recommend outpatient follow-up with GI - patient likely will need capsule endoscopy to evaluate sb or EUS but not available at [facility] Further recommendations depend on clinical course Patient seen in collaboration with Dr. Borja Consultation Date/Type/Reason Admit Date/Time Jun 30, 2016 at 13:37 Initial Consult Date Type of Consultation: GI 24 HR Interval Summary Free Text/Dictation Patient tolerating diet Denies abdominal pain, nausea, vomiting Patient to follow-up outpatient with GI GI sign off Exam/Review of Systems Vital Signs Vitals Vital Signs Date Time Temp Pulse Resp B/P Pulse Ox O2 Delivery O2 Flow Rate FiO2 07/06/16 07:55 98.2 75 14 131/75 98 07/05/16 18:40 Room Air Intake and Output 07/05/16 07/05/16 07/06/16 15:00 23:00 07:00 Intake Total 700 ml 1050 ml Output Total 600 ml 900 ml Balance 100 ml 150 ml Exam Constitutional: alert, oriented, well developed Psych: nl mood/affect Head: normocephalic Eyes: EOMI, nl conjunctiva, nl lids, nl sclera ENMT: nl external ears & nose, nl lips & teeth, nl nasal mucosa & septum Respiratory: normal air movement Cardiovascular: regular rate and rhythm Gastrointestinal: soft, non tender Musculoskeletal: nl extremities to inspection 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: 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 II-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 intact Results Result Diagram: 07/03/16 0540 07/03/16539 Results 24 hrs Laboratory Tests Test 07/06/16 07:28 07/06/16 07:32 Lab Scanned Report REFERENCE LAB REFERENCE LAB Medications Medications Current Medications Sodium Chloride (NS) 1,000 ml @ 50 mls/hr Q20H IV Last administered on t 08:24; Admin Dose 50 MLS/HR; Start 06/30/16 at 15:59 Ondansetron HCl (Zofran Inj) 4 mg Q6H PRN IV NAUSEA AND/OR VOMITING; Start at 16:00 Acetaminophen (Tylenol Tab) 650 mg Q6H PRN PO PAIN LEVEL 1-3 OR FEVER; Start at 16:00 Acetaminophen (Tylenol Supp) 650 mg Q6H PRN [place] PAIN LEVEL 1-3 OR FEVER; Start 06/30/16 at 16:00 Enoxaparin Sodium (Lovenox) 40 mg DAILY SC Last administered on 07/06/16 08:19 ; Admin Dose 40 MG; Start 06/30/16 at 17:00 Hydromorphone HCl (Dilaudid) 0.5 mg Q8 PRN IV SEVERE PAIN LEVEL 7-10 Last administered on 07/06/16 11:40; Admin Dose 0.5 MG; Start 06/30/16 at 22:00 Tramadol HCl (Ultram) 50 mg Q6H PRN PO pain management Last administered on 15:07; Admin Dose 50 MG; Start 06/30/16 at 21:00 Miscellaneous Medication (Gi Cocktail (2)) 40 ml Q8 PO ; Start 07/03/16 at 14:00 Belladonna/ Phenobarbital () 1 tab Q8 PO ; Start 07/03/16 at 14:00 Colchicine (Colchicine) 0.6 mg BID PO Last administered on 07/06/16 08:17; Admin Dose 0.6 MG; Start 07/04/16 at 09:00 Pantoprazole (Protonix Tab) 40 mg BID@,18 PO Last administered on 07/06/16 05:41; Admin Dose 40 MG; Start 07/03/16 at 18:00 Metoclopramide HCl (Reglan) 10 mg Q6 IV ; Start 07/05/16 at 23:00 Sucralfate (Carafate) 1 gm QID PO Last administered on 07/06/16 12:53; Admin Dose 1 GM; Start 07/05/16 at 19:00 CATHY CLINTON Jul 06, 2016 16:06
[2016-07-06 20:53] VITALS: BP 121/68; RESP 18
[2016-07-07] MEDS: HYDROmorphONE 1 MG/ML SYG IV PRN ×2 (04:11→12:12)
[2016-07-07] MEDS: BELLADONNA/PHENOBARBITAL TAB PO SCH ×2 (06:00→13:04)
[2016-07-07] MEDS: LIDOCAINE/MYLANTA 40 ML BTL PO SCH ×2 (06:00→13:04)
[2016-07-07] MEDS: METOCLOPRAMIDE 10 MG INJ IV SCH ×3 (06:00→12:00)
[2016-07-07] MEDS: PANTOPRAZOLE (EC) 40 MG TAB PO SCH (06:09)
[2016-07-07 08:02] VITALS: BP 116/65; RESP 18
[2016-07-07] MEDS: ENOXAPARIN 40 MG/0.4 ML SYG SC SCH (09:00)
[2016-07-07] MEDS: SUCRALFATE 1 GM TAB PO SCH ×2 (09:32→12:12)
[2016-07-07] MEDS: COLCHICINE 0.6 MG TAB PO SCH (09:32)
[2016-07-07] MEDS: traMADol 50 MG TAB PO PRN (09:33)
[2016-07-07] MEDS ORDERED: HYDR-906 PO (13:25)
[2016-07-07] MEDS ORDERED: SUCR1TAB27 PO (13:25)
--- NOTE | 2016-07-07 13:32 | DS ---
Date/Time of Note Date/Time of Note DATE: 07/07/16 TIME: 13:27 Discharge Summary Admission/Discharge Info Admit Date/Time Jun 30, 2016 at 13:37 Discharge Date/Time Final Diagnosis 1. Abdominal pain, gastritis/esophagitis on EGD, on protonix/carafate, follow up with GI 2. 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 Gout, stable Patient Condition: Stable Consults Clifford Borja MD-GI Procedures G.I. LAB PROCEDURE DATE OF PROCEDURE: PROCEDURE: Esophagogastroduodenoscopy with biopsies. SURGEON: Clifford Borja MD BRIEF HISTORY AND INDICATIONS: The patient with persistent abdominal pain. PREMEDICATION: Monitored anesthesia care by anesthesiologist. INSTRUMENT USED: TECHNIQUE: After informed consent, with the patient/relatives understanding the procedure, its indications, potential risks and complications, including but not limited to: allergic reaction, bleeding, perforation or infection, and after all pertinent questions were answered to the patient's satisfaction, the patient/relatives signed witnessed informed consent. Following this, premedication was administered slowly IV push under careful cardiovascular and respiratory monitoring with pulse oximetry, automatic blood pressure and school lunch monitor. Once the sedative effect was achieved the patient was place in the left lateral decubitus, the panendoscope was introduced and advanced under visual control. FINDINGS: Careful examination of the upper gastrointestinal tract, both on insertion as well as withdrawal of the instrument disclosed the following findings: ESOPHAGUS: The distal esophagus shows mild erythema and edema of the mucosa. STOMACH: Upon entrance to the stomach, air was insufflated, the gastric cleveland distended normally. The mucosa of the fundus, body and antrum of the stomach was carefully examined, shows erythema and edema of the mucosa of a moderate degree, bile reflux appears to be present as well. Biopsies were obtained to rule out H. pylori infection. PYLORUS: The pylorus appears patent and within normal limits, with no evidence of gastric outlet obstruction. DUODENUM: The duodenal mucosa was carefully examined in the duodenal bulb as well as the second portion of the duodenum and appears unremarkable with no evidence of duodenitis, ulcer or neoplasm. The instrument was then withdrawn, the patient tolerated the procedure well and was transfer out of the endoscopy suite awake, and in good condition to continue recovery under observation. I IMPRESSION: 1. Moderate distal esophagitis. 2. Gastritis, moderate. Rule out H. pylori infection versus bile reflux. PLAN: The patient will be treated with PPI double dose, Reglan 10 mg q.i.d., Carafate 1 gram q.i.d. Dictated By: CLIFFORD BORJA MS/SARAH BETH Conf#: [id number] DID#: [id number] Hospital Course This is a 40-year-old gentleman who presents from an outside ER for transfer for continuity with his insurance. The patient is seen in [facility] ER with abdominal pain, nausea, vomiting, cannot hold anything down, epigastric burning, radiating to left upper quadrant. Vital signs are stable, and they did not send me nay lab work results , but I was told the LFTs and lipase were all normal. Patient is awake, alert. No stephanie icterus, no hematemesis. Possible subjective fever. No chills, no rigors. Denies any alcohol. Of note, the patient went home from this hospital 24 hours ago. The issues are recurrent abdominal pain and questionable nausea, vomiting. The patient was seen at [facility] ER in April and noted to have pain- seeking behavior. His ultrasound at that time showed fatty liver disease and a small 15-mm hepatic hemangioma. EGD showed esophagitis and gastritis. Patient is getting double protonix and carafate. Clinically stable. He is discharged home and follow up with GI in one week [place] [id number] Radiology Main Line: [phone] DIAGNOSTIC IMAGING REPORT Patient: FORTINO ALONSO : 1975 Age: 40 Sex: M MR #: [id number] DOS: 07/03/16 0000 Ordering MD: EVENS BOLAND MD Location: [facility] Room/Bed: [facility] PROCEDURE: MRA of the abdomen without and with contrast CLINICAL INDICATION: Abdominal pain. Evaluate for pseudoaneurysm. TECHNIQUE: An MRA of the abdomen was performed on a GE 1.5 Abeba scanner utilizing the following sequences: Coronal single shot FSE T2-weighted, axial T1-weighted FSPGR and out of phase, and postcontrast axial and coronal T1- weighted with multi phase imaging on the axial postcontrast study. Arterial and venous phase frontal MRA images were obtained. 3-D images were also reviewed. 20 cc of Magnevist were given intravenously without complication. COMPARISON: MRCP 06/25/[address] abdomen and pelvis 07/02/2016. FINDINGS: The liver is normal in size and homogeneous in signal intensity. There is normal signal intensity within the liver. No liver mass lesion or intrahepatic biliary dilatation is seen. The spleen is normal in size and homogeneous in signal intensity. The stomach is partially collapsed but grossly unremarkable. There is approximately 2 cm portion of the distal pancreatic tail which demonstrates loss of normal nodular contour of the pancreas; however this area demonstrates no abnormal intensity with similar enhancement pattern of the pancreas. No pancreatic lesion is seen. The adrenal glands and kidneys are symmetrically normal. There is approximately 1 cm cortical cyst in the right kidney. The aorta is of normal caliber. There is no retroperitoneal lymphadenopathy. The bowel and mesentery, as visualized, are all unremarkable. Splenic vein, SMV, portal veins are all patent. Mesenteric arteries , two right -sided and single left renal arteries are patent with no significant ostial stenosis. Splenic artery is normal in caliber with no pseudoaneurysm. IMPRESSION: Vascular: 1. Patent mesenteric arteries with no pseudoaneurysm. 2. Patent portal venous system. Abdomen: 1. Subtle parenchymal distortion of the distal pancreatic tail with loss of normal nodular contour; however this area also demonstrate normal homogeneous contrast enhancement as the rest of the pancreatic parenchyma. No peripancreatic inflammatory changes. (Please see fry images ) Splenic vein and splenic artery remain patent at this location. 2. No biliary ductal dilatation. 3. Small simple cyst in the right kidney. RPTAT: EE .Winston Vale MD, MD Date Time Electronically viewed and signed by .Winston Vale MD, on 07/03/2016 17:44 Home Meds Active Scripts Hydrocodone/Acetaminophen (Delta 5-325 Tablet) 1 Each Tablet, 1 EACH PO Q4H, # 20 TAB Prov:JOE BRICENO MD 07/07/16 Sucralfate (Carafate) 1 Gm Tablet, 1 GM PO QID for 30 Days, TAB Prov:JOE BRICENO MD 07/07/16 Pantoprazole* (Pantoprazole*) 40 Mg Tablet., 40 MG PO BID@06,18 for 30 Days, # 60 Prov:EVENS BOLAND MD 06/28/16 Metoclopramide* (Reglan*) 10 Mg/10 Ml Soln, 10 MG PO Q8 for 7 Days, #30 Prov:EVENS BOLAND MD 06/28/16 Ibuprofen* (Ibuprofen*) 800 Mg Tablet, 800 MG PO Q6H Y for MODERATE PAIN LEVEL 4 -6 for 7 Days, #30 TAB Prov:EVENS BOLAND MD 06/28/16 Colchicine* (Colcrys*) 0.6 Mg Tablet, 0.6 MG PO BID for 6 Days, #14 TAB Prov:EVENS BOLAND MD 06/28/16 Ondansetron Hcl* (Zofran*) 4 Mg Tablet, 4 MG PO Q8H Y for NAUSEA AND/OR VOMITING , #15 TAB Prov:KRYSTAL ADAM MD 06/14/16 Reported Medications Alprazolam* (Xanax*) 1 Mg Tab, 1 MG PO TID, TAB 06/30/16 Indomethacin* (Indocin*) 50 Mg Cap, 50 MG PO BID, CAP 06/30/16 Oxycodone HCl/Acetaminophen (Percocet 10-325 mg Tablet) 1 Each Tablet, 1 EACH PO Q4 Y for PAIN, TAB 06/30/16 Febuxostat* (Uloric*) 40 Mg Tablet, 40 MG PO DAILY, TAB 06/30/16 Lktxrb-Chuthfuk-Bzuirlw* (Freddie [facility]* 6,000) 6,000 L-19,000-30,000 Unit Capsule. , 6000 CAP PO TID with meals, CAP 06/25/16 Loratadine* (Loratadine*) 10 Mg Tablet, 10 MG PO DAILY, #30 TAB 06/25/16 Discontinued Reported Medications Omeprazole* (Omeprazole*) 20 Mg Capsule., 20 MG PO BID, #60 CAP 06/25/16 Follow-up Plan PCP one week Dr. Borja in one week JOE BRICENO MD Jul 07, 2016 13:32
== END 2016-07-07 17:16 | disposition home or self-care (01) | DRG 392 ==
LOC: PP2 13:37
PROVIDERS: ADMIT Internal Medicine; ATTEND Internal Medicine
PROC: 0DB68ZX Excision of Stomach, Via Natural or Artificial Opening Endoscopic, Diagnostic (ICD-10-PCS; principal; 2016-07-07)
DX: K29.70 Gastritis, unspecified, without bleeding (principal); K76.0 Fatty (change of) liver, not elsewhere classified; K86.0 Alcohol-induced chronic pancreatitis; K20.9 Esophagitis, unspecified; M10.9 Gout, unspecified; Z76.5 Malingerer [conscious simulation]; F43.20 Adjustment disorder, unspecified; D64.9 Anemia, unspecified; R73.03 Prediabetes
CPT/HCPCS: 74177; 74178; 74185; 80053; 80061; 80307; 81003; 82270; 82306; 82787; 83605; 83615; 83690; 83735; 84100; 85025; 85610; 86021; 86038; 87338; 88305; 88312; J1170; J1650; J2060; J2765; J2920; J7030; Q9967

== ENCOUNTER 2017-08-28 08:35 | Emergency (ER) | END 2017-08-28 12:08 | disposition home or self-care (01) ==